=== PATIENT | male | born 1940 | race Caucasian/White ===

== ENCOUNTER 2024-11-26 11:49 | Inpatient (IN) | payer OTHER, SELFPAY ==
[2024-11-26] VITALS (10 sets, daily range): BP systolic 87–125; BP diastolic 50–93; BMI 20.7; BMI 20.1
[2024-11-26 07:50] LABS: % Basophils 0.3 % (0-2); % Eosinophils 0.5 % (0-6); % Immature Granulocytes 0.4 % (0-0.5); % Lymphocytes 16.7 % (20.5-51.1); % Neutrophils 77.1 % (42.2-75.2); Absolute Lymphocytes 1.3 10^3/uL (1.2-3.4); Absolute Monocytes 0.4 10^3/uL (0.1-0.6); Absolute Neutrophils 5.9 10^3/uL (1.4-6.5); Hematocrit 34.6 % (39.0-52.0); Hemoglobin 12.4 g/dL (13.0-18.0); Mean Corp Hgb Conc. 35.8 g/dL (33.0-37.0); Mean Corpuscular Hgb 32.4 pg (27.0-31.0); Mean Corpuscular Volume 90.3 fL (80.0-94.0); Mean Platelet Volume 8.7 fL (7.4-10.4); Nucleated Red Blood Cells % 0 % (-); Platelet Count 177 10^3/uL (130-400); Red Blood Cell Count 3.83 10^6/uL (4.70-6.10); White Blood Cell Count 7.6 10^3/uL (4.8-10.8)
[2024-11-26 08:03] LABS: ALT (SGPT) 18 U/L (0-50); AST (SGOT) 26 U/L (17-59); Albumin 3.9 g/dl (3.5-5.0); Alkaline Phosphatase 54 U/L (38-126); Blood Urea Nitrogen 21 mg/dl (9-20); Calcium 8.5 mg/dl (8.4-10.2); Carbon Dioxide 22 mmol/L (22-30); Chloride 96 mmol/L (98-107); Estimated Creatinine Clearance 55 ml/min; Glucose 128 mg/dl (70-99); Potassium 3.8 mmol/L (3.5-5.1); Sodium 130 mmol/L (135-145); Total Protein 6.3 g/dl (6.3-8.2); eGFR > 60.00
[2024-11-26 08:07] LABS: COVID-19 Antigen Negative (Negative)
--- NOTE | 2024-11-26 08:26 | ED.GENMED ---
History of Present Illness
General
Chief Complaint: Weakness
Source: patient
Exam Limitations: none
Time Seen by Provider: 11/26/24 07:09
Nursing documentation reviewed up to this point in time: agreed with
History of Present Illness
History of Present Illness:
84-year-old male with past medical history of previous stroke, hypertension presenting to the emergency department today with concerns of 4 days of upper respiratory symptoms generalized weakness fatigue and cough. Denies any specific chest pain
specific shortness of breath during my assessment at rest he claims that he does not have significant symptoms other than intermittent cough and some throat pain.
Past History
Past History
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
ED Past Surgical History: Other (Cataracts)
Social History
Tobacco: Non-smoker
Alcohol: None
Drug: None
Personal:
Living: with family
Review of Systems
Review of Systems
Allergies reviewed?: Yes
All Other Systems: ROS reviewed and negative except as documented in HPI and ROS
Phy Exam
Physical Exam
Physical Exam:
GENERAL: Alert , in no apparent distress
EYE: pupils equal and reactive
NECK: Supple, no significant adenopathy.
ENT: Postnasal drip o/p clr, mmm.
CARDIAC: Regular rate and rhythm .
LUNGS: Clear breath sounds bilaterally, no acute respiratory distress, no wheezes/rales/rhonchi
ABDOMEN: Soft, without focal tenderness, no r/g, no cvat
NEUROLOGICAL: Alert and oriented, no focal neuro deficits
SKIN: Warm and dry, skin intact.
MUSCULOSKELETAL: No edema, well perfused.
PSYCH: Normal and appropriate interaction.
Sepsis
Sepsis Screening
Sepsis Assessment: Sepsis Ruled Out
Sepsis Screen
Sepsis Screen: Sepsis Ruled Out
Date: 11/26/24
Time: 10:29
Course
Orders/Labs/Results
Orders:
Orders
11/26/24 07:29
Urinalysis Reflex To Culture Urgent
CR Chest - 2 Views Urgent
Comment:
Reason For Exam: sob cough
11/26/24 07:30
Electrocardiogram (*1) Stat
Reason for Study: Other
Other Reason for Exam: pneumonia
EKG- Treatment ONCE
11/26/24 07:36
COVID-19 Antigen Urgent
Source: Nasal Swab
Complete Blood Count/With Diff Urgent
Comprehensive Metabolic Panel Urgent
Influenza A+B Rapid Molecular Urgent
EMETERIO Source: Nasal Swab
Specimen Description:
11/26/24 08:26
Acetaminophen [Tylenol] 1,000 mg PO NOW STA
11/26/24 08:28
0.9% Sodium Chloride 500 ml [Nss] 500 ml IV BOLUS
11/26/24 10:08
Azithromycin 500 mg/250 ml [Zithromax Infusion] 500 mg in 250 ml IV NOW
CefTRIAXone [Rocephin] 1,000 mg IV NOW STA
Abnormal Lab Results
11/26/24
07:36
RBC 3.83 L 10^6/uL
(4.70-6.10)
Hgb 12.4 L g/dL
(13.0-18.0)
Hct 34.6 L %
(39.0-52.0)
MCH 32.4 H pg
(27.0-31.0)
Neutrophils % 77.1 H %
(42.2-75.2)
Lymphocytes % 16.7 L %
(20.5-51.1)
Sodium 130 L mmol/L
(135-145)
Chloride 96 L mmol/L
(98-107)
BUN 21 H mg/dl
(9-20)
Glucose 128 H mg/dl
(70-99)
11/26/24 07:36
11/26/24 07:36
Vital Signs
Initial and Last Documented VS:
Initial Vital Signs
Temp Pulse Resp BP Pulse Ox
100.7 F H 90 20 118/58 90
11/26/24 06:46 11/26/24 06:46 11/26/24 06:46 11/26/24 06:46 11/26/24 06:46
Last Documented Vital Signs
Temp Pulse Resp BP Pulse Ox
100.7 F H 79 21 125/93 92
11/26/24 06:46 11/26/24 09:00 11/26/24 09:00 11/26/24 09:00 11/26/24 09:00
MDM/Problems Addressed
MDM/Problems Addressed:
84-year-old male presenting to the emergency department today with concerns of generalized weakness fatigue cough upper respiratory symptoms over the past 4 days. Low-grade temperature on arrival otherwise vital signs are normal. Patient claims
his symptoms are very while he sitting in the examination room. Labs were obtained showing slightly low sodium level as well as elevated BUN to creatinine ratio. Patient was given fluids did have some improvement in symptoms here. He was taken
off the oxygen typically is not on oxygen at home. Was using 2 L nasal cannula due to dropping pulse ox while here. After being taken off of the oxygen his pulse ox dropped to 87%. He was then placed back on the oxygen. After reviewing the chest
x-ray there appears to be a potential early pneumonia that seen on lateral view. Concerning this she was darted on antibiotics and will otherwise be admitted for further monitoring and treatment.
*Critical Care Note
Total Time (30-74mins, 75-104mins- exclusive of procedures): Not Applicable
ED Attending Note
-
Portions of this chart may have been created with voice recognition software.� Occasional wrong word or��sound alike� substitutions may have occurred due to the inherent limitations of voice recognition software.
Discharge Plan
Departure
Patient Disposition: Admit
Date of Disposition: 11/26/24
Time of Disposition: 10:29
Admit to: Med/Surg
Admit to doctor: Cornelio
Presentation/result/management discussed w/ accepting MD/DO: Hospitalist
Patient with high blood pressure during this ER visit?: No
Condition: Good
Covid-19: Not Applicable
Discharge Problem:
Pneumonia, Hypoxia
Prescriptions:
No Action
levothyroxine 100 mcg tablet
100 mcg PO MOTUWETHFRSA@0800
clopidogrel 75 mg tablet
75 mg PO DAILY Qty: 90 0RF
Rx Instructions:
both aspirin and plavix untill 02/09/23 then stop aspirin and continue plavix indefinitely.
prednisone 5 mg Tablet
5 mg PO DAILY Qty: 90 0RF
cabergoline 0.5 mg Tablet
0.25 mg PO MOFR Qty: 30 0RF
Referrals:
Akash Dinero MD [Family Provider] -
Interventions
Interventions:
*Risk Screen - Suicide Last Done: 11/26/24 06:46
*General Assessment Last Done: 11/26/24 07:26
*Neglect/Abuse Screening Last Done: 11/26/24 06:46
*ED- Fall Risk Assessment Last Done: 11/26/24 06:46
*ED COVID-19 Vaccine History Last Done: 11/26/24 06:46
ED- Cardiac Assessment Last Done: 11/26/24 07:47
ED- Neurological Assessment Last Done: 11/26/24 07:47
ED- Pulmonary Assessment Last Done: 11/26/24 07:47
Discharge Date and Time
Print Language: PALESTINIAN
[2024-11-26] MEDS: TYLENOL 1000 MG PO (08:50)
[2024-11-26] MEDS: NSS 500 IV ×2 (08:51→12:06)
[2024-11-26] MEDS: ROCEPHIN 1000 MG IV (10:25)
[2024-11-26] MEDS: ZITHROMAX INFUSION 250 IV (10:25)
--- NOTE | 2024-11-26 11:47 | HPS.HSE ---
Family Physician
-
Family Physician: Akash Dinero
Chief Complaint
-
Cough and weakness
History of Present Illness
Patient presents with 4 days of cough which she says mostly is dry. He also has been feeling weak and fatigued.
He denies any associated shortness of breath. Does not recollect any fevers or chills at home.
No nausea vomiting.
Discovered to have fever and here and left lower lobe pneumonia on the chest x-ray.
He was also noted to be hypoxic needing oxygen.
Denies any primary lung issues of emphysema or COPD. Non-smoker. Denies any history of heart failure.
Denies any chest pain.
Nobody sick at home. No recent travel.
Medical History
Past Medical History
Past Medical History: Reports Other
Additional Past Medical History:
hypothyroidism
htn
SIADH
Past Surgical History: Reports None
Social History
Tobacco: Non-smoker
Alcohol: None
Drug: None
Personal:
Living: With Family
Employment: Retired
Family History
Family History: Not pertinent
Allergies / Home Medications
Allergies reflects when Allergies were last updated in [facility].
Home Medications with original date entered in [facility]
Allergy/Medication List:
Allergies
Allergy/AdvReac Type Severity Reaction Status Date / Time
shellfish derived Allergy Anaphylaxis Verified 01/12/23 12:31
Home Medications
midodrine 2.5 mg tablet 2.5 mg PO DAILY 03/11/14
prednisone 5 mg tablets in a dose pack 5 mg PO DAILY ##14 03/30/19
Rhodiola 500 mg PO HS PRN leg cramps 01/12/23
cabergoline 0.5 mg tablet 0.25 mg PO .2X WEEKLY 01/12/23
donepezil 10 mg tablet 10 mg PO DAILY 01/12/23
levothyroxine 100 mcg tablet 100 mcg PO .6X WEEKLY 01/12/23
multivit,Ca,min-iron 8 mg-folic acid 200 mcg-lycopene 600 mcg tablet (Centrum Men) 1 tab PO DAILY 01/12/23
sodium chloride-potassium chloride 287 mg-180 mg-15 mg tablet (Thermotabs) 1 tab PO DAILY 01/12/23
Review of Systems
-
A 12 point ROS was completed and negative except as noted: Yes
Physical Exam
Vital Signs
Vital Signs
Temp Pulse Resp BP Pulse Ox
100.7 F H 65 17 107/55 95
11/26/24 06:46 11/26/24 11:00 11/26/24 11:00 11/26/24 10:00 11/26/24 11:00
Physical Exam
General: Comfortable
HEENT: Moist mucous membranes
Respiratory: Crackles (Left base) and Non Labored Respirations; No Accessory Resp Muscle Use
Cardiac: S1/S2 and Regular Rhythm; No Tachycardia or JVD
GI: Soft, Non Tender, Non Distended and Normal Bowel Sounds
Musculoskeletal: No Edema
Neuro: AO x 3
Psych: Calm
Laboratory Results
-
11/26/24 07:36
11/26/24 07:36
Laboratory Results
Total Bilirubin 1.0 mg/dl (0.2-1.3) 11/26/24 07:36
AST 26 U/L (17-59) 11/26/24 07:36
ALT 18 U/L (0-50) 11/26/24 07:36
Alkaline Phosphatase 54 U/L (38-126) 11/26/24 07:36
Data Reviewed
-
Diagnostic Radiology: Report Reviewed by me (Chest x-ray)
Lab Data: Labs Reviewed by me
Impression/Plan
-
Left lower lobe qqngzrlqq-abgcbnnqa-ixdzefft-patient presents with cough and weakness. Noted to have fever with x-ray evidence of left lower lobe pneumonia. Treat as community-acquired pneumonia. COVID and flu negative. Check blood cultures.
Start on ceftriaxone and doxycycline antibiotic regimen and follow response.
Acute hypoxic respiratory insufficiency-start on oxygen and wean as able. No active reactive airway disease. Not known to have underlying lung chronic issues.
Hypertension-noted drop in blood pressure after admission. Will give a fluid bolus and follow-up. If persistent hypotension check a lactic acid.
Hyponatremia-clinically euvolemic. Unclear oral intake. No active GI symptoms. No extrarenal losses. Check urine osmolality and sodium.
Chronic steroid use-patient does not know the indication. In view of soft blood pressure will start on stress dose steroids.
History of CVA-continue Plavix
Hypothyroidism-continue Synthroid
Full code
Left msg to
--- NOTE | 2024-11-26 13:39 | CM ---
Patient seen at bedside with patient . Patient states that patient lives with her on the first floor of a home that her daughter and son in law live on the second floor. Patient daughter is primary caregiver during the week. Patient has had
admission to [facility] and home care in the past. Patient PCP is Dr. Avalos and they use the [facility] on [address] Patient states that he has a walker, rollator and a wheelchair but they do not use the wheelchair currently. Patient has no home O2 and
has not had any admissions since his discharge from [facility] approx 2 years ago. Patient plan is for him to return home with VN if needed. CM will continue to follow for discharge planning needs.
Plan; home with VN vs SNF
[2024-11-26] MEDS: SOLU-CORTEF 50 MG IV ×2 (15:52→23:52)
[2024-11-26] MEDS: PLAVIX 75 MG PO (15:52)
[2024-11-26 16:57] LABS: Osmolality Urine 542 mOsm/kg (300-900); Urine Albumin 1+ (Neg - Trace); Urine Bilirubin Negative (Negative); Urine Character Clear (Clear); Urine Color Yellow; Urine Glucose Negative (Negative); Urine Ketone Negative (Negative); Urine Leukocyte Negative (Negative); Urine Nitrite Negative (Negative); Urine Occult Blood Negative (Negative); Urine Urobilinogen Negative (Neg - 1+); Urine pH 6.5 (5.0-9.0)
[2024-11-26 17:08] LABS: Urine Bacteria Few (Negative); Urine Red Blood Cell 0-2 /HPF (0-2); Urine Squamous Cell 0-2 /LPF (Few); Urine White Cell 0-2 /HPF (0-5)
[2024-11-26] MEDS: LOVENOX 40 MG SC (17:11)
[2024-11-26 17:12] LABS: Urine Sodium 107 mmol/L (30-90)
[2024-11-26] MEDS: VIBRAMYCIN 100 MG PO (21:14)
[2024-11-27] MEDS: SYNTHROID 100 MCG PO (05:52)
[2024-11-27 07:20] VITALS: BP 146/65
[2024-11-27] MEDS: PLAVIX 75 MG PO (07:38)
[2024-11-27] MEDS: SOLU-CORTEF 50 MG IV ×2 (07:38→19:35)
[2024-11-27] MEDS: VIBRAMYCIN 100 MG PO ×2 (07:38→19:34)
[2024-11-27] MEDS: NON-FORMULARY ITEM 0.25 MG PO (07:52)
[2024-11-27 09:05] LABS: Hematocrit 37.4 % (39.0-52.0); Hemoglobin 13.2 g/dL (13.0-18.0); Mean Corp Hgb Conc. 35.3 g/dL (33.0-37.0); Mean Corpuscular Hgb 32.1 pg (27.0-31.0); Mean Platelet Volume 8.8 fL (7.4-10.4); Platelet Count 209 10^3/uL (130-400); Red Blood Cell Count 4.11 10^6/uL (4.70-6.10); Red Cell Dist. Width 12.8 % (11.5-14.5); White Blood Cell Count 9.8 10^3/uL (4.8-10.8)
[2024-11-27 09:37] LABS: Blood Urea Nitrogen 19 mg/dl (9-20); Calcium 9.4 mg/dl (8.4-10.2); Carbon Dioxide 22 mmol/L (22-30); Chloride 97 mmol/L (98-107); Estimated Creatinine Clearance 60 ml/min; Glucose 150 mg/dl (70-99); Potassium 3.9 mmol/L (3.5-5.1); Sodium 133 mmol/L (135-145); eGFR > 60.00
--- NOTE | 2024-11-27 09:56 | W.PN.HOSP.TC ---
Today's Communication/Plan
-
CW ABX
Wean steroids
DC planning
Assessment / Plan
Assessment / Plan
Left lower lobe saygvyiso-tvmkbytkj-dckyzgrz-patient presents with cough and weakness. Noted to have fever with x-ray evidence of left lower lobe pneumonia. cw tx as community-acquired pneumonia. COVID and flu negative. blood cultures pending.
CW ceftriaxone and doxycycline antibiotic regimen and follow response.
Acute hypoxic respiratory insufficiency-Resolved. No active reactive airway disease. Not known to have underlying lung chronic issues.
Hypotension-noted drop in blood pressure after admission. Will give a fluid bolus and follow-up. resolved.
Hyponatremia-clinically euvolemic. Unclear oral intake. No active GI symptoms. No extrarenal losses. Urine osmolality and sodium indicates excess ADH. On FR. improving
Chronic steroid use-patient does not know the indication. In view of soft blood pressure started on stress dose steroids. wean today as BP has improved.
History of CVA-continue Plavix
Hypothyroidism-continue Synthroid. Await TSH.
Full code
Left msg to yesterday
Anticipated Discharge: Within 24 hours
Subjective/Interval History
-
Date of Service: November 27, 2024
Feeling better today. Apart from runny nose voices no specific complaints. Cough is mostly dry. Denies shortness of breath. Not on oxygen this morning. Denies any chest pain.
No nausea vomiting.
Still cannot remember the indication for prednisone.
Objective Data
-
Labs:
Laboratory Results
11/27/24
08:40
WBC 9.8
Hgb 13.2
Hct 37.4 L
Plt Count 209
Sodium 133 L
Potassium 3.9
Chloride 97 L
Carbon Dioxide 22
BUN 19
Creatinine 0.8
Glucose 150 H
Calcium 9.4
Vital Signs:
Vital Signs
Temp Pulse Resp BP Pulse Ox
97.3 F 58 18 146/65 94
11/27/24 07:20 11/27/24 07:20 11/27/24 07:20 11/27/24 07:20 11/27/24 09:01
I&O
11/26/24 11/27/24 11/28/24
06:59 06:59 06:59
Intake Total 480 / 480
Output Total 350 / 350
Balance 130 / 130
Review of Systems
-
Constitutional: Denies Fever or Chills
Neuro: Denies Dizzy
Physical Exam
-
General: No Apparent Distress
HEENT: Moist Mucous Membranes
Respiratory: Crackles (left base) and Non Labored Respirations; Negative Wheezes or Accessory Resp Muscle Use
Cardiac: Regular Rhythm and S1/S2
GI: Soft
Neuro: AO x 3
Data Reviewed
-
Labs: Labs Reviewed by me
[2024-11-27 10:08] LABS: TSH < 0.02 uIU/ml (0.47-4.68)
[2024-11-27] MEDS: ROCEPHIN 1000 MG IV (10:38)
[2024-11-27] MEDS: STERILE WATER FOR INJECTION 10 ML IV (10:38)
[2024-11-27 15:31] VITALS: BP 143/69
--- NOTE | 2024-11-27 15:55 | CM ---
Chart reviewed, patient would benefit from PT/OT evaluations.
Plan; To follow and after patient seen by PT OT assist with discharge planning.
[2024-11-27] MEDS: LOVENOX 40 MG SC (17:07)
[2024-11-27 23:00] VITALS: BP 124/55
[2024-11-28] MEDS: SYNTHROID 100 MCG PO (04:34)
[2024-11-28 06:24] LABS: Blood Urea Nitrogen 24 mg/dl (9-20); Calcium 9.1 mg/dl (8.4-10.2); Carbon Dioxide 23 mmol/L (22-30); Chloride 100 mmol/L (98-107); Estimated Creatinine Clearance 53 ml/min; Glucose 128 mg/dl (70-99); Potassium 3.8 mmol/L (3.5-5.1); Sodium 134 mmol/L (135-145); eGFR > 60.00
[2024-11-28] MEDS: PLAVIX 75 MG PO (07:39)
[2024-11-28] MEDS: VIBRAMYCIN 100 MG PO (07:39)
[2024-11-28] MEDS: SOLU-CORTEF 50 MG IV (07:40)
[2024-11-28 07:56] VITALS: BP 109/6
[2024-11-28] MEDS: STERILE WATER FOR INJECTION 10 ML IV (09:41)
[2024-11-28] MEDS: ROCEPHIN 1000 MG IV (09:41)
--- NOTE | 2024-11-28 12:20 | W.PN.HOSP.TC ---
Today's Communication/Plan
-
DC
Assessment / Plan
Assessment / Plan
Left lower lobe fvjcottce-yzxcmipfm-broitqlb-patient presents with cough and weakness. Noted to have fever with x-ray evidence of left lower lobe pneumonia. cw tx as community-acquired pneumonia. COVID and flu negative. blood cultures neg.
clinically improved. Resolved hypoxia. Switch to oral cefdinir and doxycycline and complete 7 and 5 days of antibiotics respectively. Advised to follow-up chest x-ray in 3 to 4 weeks time..
Acute hypoxic respiratory insufficiency-Resolved. No active reactive airway disease. Not known to have underlying lung chronic issues.
Hypotension-noted drop in blood pressure after admission. Will give a fluid bolus and follow-up. resolved.
Hyponatremia-clinically euvolemic. Unclear oral intake. No active GI symptoms. No extrarenal losses. Urine osmolality and sodium indicates excess ADH. On FR. 134 today. Suspect secondary to pneumonia. Liberalize fluids. Advised to avoid excess
fluids.
Chronic steroid use-DC back to oral home dose of prednisone 5 mg daily.
History of CVA-continue Plavix
Hypothyroidism- TSH low - advised to decrease synthroid to 75 mcg and check TSH in 4weeks
Full code
DW regarding pneumonia follow-up and regarding TSH follow-up.
Total discharge 32 minutes
Anticipated Discharge: Today
Subjective/Interval History
-
Date of Service: November 28, 2024
Resolved shortness of breath and hypoxia. Feels better. Keen to go home.
Denies much of cough. No chest pain. No nausea vomiting. No fever chills.
Tolerating diet.
Denies any dizziness. States he is independent walking to the bathroom.
Objective Data
-
Labs:
Laboratory Results
11/28/24
04:52
Sodium 134 L
Potassium 3.8
Chloride 100
Carbon Dioxide 23
BUN 24 H
Creatinine 0.9
Glucose 128 H
Calcium 9.1
Vital Signs:
Vital Signs
Temp Pulse Resp BP Pulse Ox
97.8 F 57 18 109/6 91
11/28/24 07:56 11/28/24 07:56 11/28/24 07:56 11/28/24 07:56 11/28/24 07:56
I&O
11/27/24 11/28/24 11/29/24
06:59 06:59 06:59
Intake Total 480 / 480 720 / 720
Output Total 350 / 350
Balance 130 / 130 720 / 720
Physical Exam
-
General: Comfortable
Respiratory: Crackles (Left basilar area) and Non Labored Respirations; Negative Wheezes or Accessory Resp Muscle Use
Cardiac: Regular Rhythm and S1/S2; Negative Tachycardic
Neuro: AO x 3
Data Reviewed
-
Labs: Labs Reviewed by me
--- NOTE | 2024-11-28 12:34 | W.DCSUMMARY ---
Discharge Summary
Discharge Data
Date of Admission: 11/26/24
Date of Discharge: 11/28/24
-
Pending Results: No
Hospital Course
Primary diagnosis:
Community-acquired pneumonia with left lower lobe opacity
Acute hypoxic respiratory insufficiency which resolved
Euvolemic hyponatremia
Secondary diagnosis:
Hypothyroidism
Chronic steroid use
History of CVA
Hospital course:
Patient presented with cough and weakness and discovered to have a left lower lobe opacity and clinically concerning for pneumonia. Immuno competent patient with the criteria for community-acquired pneumonia. COVID and flu are negative. Blood
cultures are negative. He was initiated on ceftriaxone and doxycycline which was switched to cefdinir and doxycycline on discharge once stable. He had transient hypoxic respiratory insufficiency which resolved. Patient advised to get a follow-up
chest x-ray in 3 to 4 weeks time.
He also had hyponatremia with sodium of 130 in the urine lites suggesting excessive ADH probably in the setting of pneumonia. With fluid restriction sodium almost normalized to 134.
A TSH was checked on admission which showed it was less than 0.02. His dose of Synthroid was down titrated to 75 mcg from 100mcg and he takes it on Saturday to Saturday daily. He was supposed to see front office director but he was hospitalized so he is
going to reschedule an appointment.
Discharge Plan
-
Patient Disposition: Home (Routine Discharge)
Discharge Diagnosis/Procedures: Left lung pneumonia
Diet: Regular
Activity: As tolerated
Driving Restrictions: As prior to admission
Bathing Restrictions: None
Others Tests: Chest xray 2 view in 3-4 weeks
Referrals:
Akash Dinero MD [Family Provider] - in less than 1 week
Prescriptions:
New
dextromethorphan-guaifenesin 10-100 mg/5 mL Syrup
10 ml PO Q4HPRN PRN (Reason: cough) Qty: 237 0RF
cefdinir 300 mg capsule
300 mg PO BID Qty: 10 0RF
doxycycline hyclate 100 mg Capsule
100 mg PO BID Qty: 6 0RF
levothyroxine 75 mcg capsule
75 mcg PO MOTUWETHFRSA Qty: 30 0RF
Rx Instructions:
Dose decreased on this admission
Continued
clopidogrel 75 mg tablet
75 mg PO DAILY Qty: 90 0RF
Rx Instructions:
both aspirin and plavix untill 02/09/23 then stop aspirin and continue plavix indefinitely.
prednisone 5 mg Tablet
5 mg PO DAILY Qty: 90 0RF
cabergoline 0.5 mg Tablet
0.25 mg PO MOFR Qty: 30 0RF
Discontinued
levothyroxine 100 mcg tablet
100 mcg PO MOTUWETHFRSA@0800
Discharge Orders:
Discharge Patient (As Directed); Ordered 11/28/24
Ordered By: Zhen Grimes
Discharge Date and Time
Print Language: ARABIC
[2024-11-28 12:51] VITALS: BP 160/68
--- NOTE | 2024-11-28 12:55 | CM ---
Patient discharged to home; no services; spouse provided transport
Left before CM was able to meet with patient
== END 2024-11-28 13:09 | disposition home or self-care (01) | DRG 194 ==
LOC: 4 WEST ACU 11:49
PROVIDERS: Physician Assistant; ADMITTING PHYSICIAN Internal Medicine; EMERGENCY PHYSICIAN Emergency Medicine; FAMILY PHYSICIAN Family Medicine
DX: J18.9 Pneumonia, unspecified organism (principal); E22.2 Syndrome of inappropriate secretion of antidiuretic hormone; E03.9 Hypothyroidism, unspecified; I10 Essential (primary) hypertension; R09.02 Hypoxemia; R06.89 Other abnormalities of breathing; I95.9 Hypotension, unspecified; Z11.52 Encounter for screening for COVID-19; Z79.890 Hormone replacement therapy; Z79.52 Long term (current) use of systemic steroids; Z86.73 Personal history of transient ischemic attack (TIA), and cerebral infarction without residual deficits; Z79.02 Long term (current) use of antithrombotics/antiplatelets
CPT/HCPCS: 71046; 80048; 80053; 81003; 81015; 83935; 84300; 84443; 85025; 85027; 87040; 87502; 87811; 93005; 96361; 96365; 96375; 99285

== ENCOUNTER 2025-07-04 11:26 | Inpatient (IN) | payer OTHER, SELFPAY ==
[2025-07-04] VITALS (13 sets, daily range): BP systolic 99–160; BP diastolic 44–70; BMI 19.4
[2025-07-04 07:14] LABS: Hematocrit 35.0 % (39.0-52.0); Hemoglobin 12.3 g/dL (13.0-18.0); Mean Corp Hgb Conc. 35.1 g/dL (33.0-37.0); Mean Corpuscular Volume 90.7 fL (80.0-94.0); Nucleated Red Blood Cells % 0 % (-); Platelet Count 173 10^3/uL (130-400); Red Cell Dist. Width 12.7 % (11.5-14.5)
[2025-07-04 07:18] LABS: ALT (SGPT) 19 U/L (0-50); AST (SGOT) 27 U/L (17-59); Albumin 3.9 g/dl (3.5-5.0); Alkaline Phosphatase 63 U/L (38-126); Blood Urea Nitrogen 20 mg/dl (9-20); Calcium 8.8 mg/dl (8.4-10.2); Carbon Dioxide 25 mmol/L (22-30); Chloride 99 mmol/L (98-107); Glucose 115 mg/dl (70-99); Potassium 3.9 mmol/L (3.5-5.1); Sodium 129 mmol/L (135-145); Total Protein 6.7 g/dl (6.3-8.2); eGFR > 60.00
[2025-07-04 07:26] LABS: Troponin I 0.180 ng/ml
[2025-07-04] MEDS: NSS 1000 IV (08:46)
--- NOTE | 2025-07-04 08:48 | ED.GENMED ---
History of Present Illness
General
Chief Complaint: Fainting/Passed Out
Source: patient
Exam Limitations: none
Time Seen by Provider: 07/04/25 08:33
Nursing documentation reviewed up to this point in time: agreed with
History of Present Illness
History of Present Illness:
Note:
CHIEF COMPLAINT(S)
Syncope and increased sleepiness.
HISTORY OF PRESENT ILLNESS
The patient is an 85-year-old male who presented following an episode of syncope that occurred last night. For the past three days, he has experienced excessive sleepiness, sleeping almost non-stop. This is not the first time such episodes have
occurred; however, they usually resolve within a day or two. Last night, the patient went to the bathroom and lost consciousness while standing to urinate. His spouse was able to catch him before he could fall. The patient reports no preceding
symptoms and denies any chest pain or difficulty breathing. He consistently reports feeling fine, aside from a general weakness in his legs.
The patient has a known history of hyponatremia with previous sodium levels around 129 mEq/L. Initial evaluations in the emergency department revealed an EKG that appeared normal but a slightly elevated troponin level, indicating potential heart
stress. The patient does not recall the syncope episode.
ADDITIONAL HISTORY OBTAINED FROM SOURCES OTHER THAN THE PATIENT
Per the patients spouse, the patient experienced excessive sleepiness and the syncopal episode last night while standing to urinate. She had concerns due to his previous sodium issues and the duration of the current sleepiness episode. She routinely
helps him with mobility due to his weak legs.
CHRONIC MEDICAL CONDITIONS SIGNIFICANTLY AFFECTING CARE
- Hyponatremia
- Possible pituitary adenoma (managed with prednisone)
MEDICATIONS
- Cabergoline
- Prednisone (for pituitary adenoma)
- Levothyroxine
REVIEW OF SYSTEMS
- General: Increased sleepiness for the last three days
- Neurological: Syncope episode last night, weakness in legs
- Respiratory: No difficulty in breathing reported
- Cardiovascular: No chest pain reported
- Musculoskeletal: Generalized leg weakness reported
PHYSICAL EXAM
General: Alert, no acute distress.
Skin: Warm, dry.
Head: Normocephalic, atraumatic.
Neck: Supple, trachea midline.
Eye, Ears, Nose, Mouth and Throat: Oral mucosa moist.
Cardiovascular: Normal peripheral perfusion, No edema.
Respiratory: Respirations are non-labored.
Gastrointestinal: Abdomen nondistended
Back: Normal range of motion, Normal alignment.
Musculoskeletal: Normal range of motion, normal strength.
Neurological: Alert and oriented to person, place, time, and situation, No focal neurological deficit observed.
Psychiatric: Cooperative, appropriate mood & affect.
PLAN
- Admit the patient for overnight observation to monitor cardiac rhythm and further evaluate the slightly elevated troponin level.
- Administer intravenous fluids to address possible dehydration and low sodium levels.
- Order a computed tomography scan of the brain to assess for causes of syncope.
- Continue current medications, and follow up with endocrine evaluation scheduled for Saturday.
DIFFERENTIAL DIAGNOSIS
The Differential Diagnosis includes, in no particular order and is not limited to:
- Syncope due to orthostasis
- Cardiac arrhythmia
- Hyponatremia leading to altered consciousness
- Primary neurological event (e.g., transient ischemic attack)
- Medication effect (e.g., excessive effect from antihypertensive)
- Pituitary insufficiency or adrenal insufficiency
- Dehydration
- Vasovagal syncope
- Electrolyte imbalance (other than hyponatremia)
- Sleep apnea or other sleep disorders affecting consciousness
EKG
My independent EKG interpretation is:
- Rhythm: Not specified
- Heart Rate: Not specified
- ID Interval: Normal
- QRS Duration: Not specified
- QT Interval: Normal
- [place]: Not specified
- Abnormalities: Chronic right bundle branch block
- ST Segment: No signs of ischemia
- T Waves: Not specified
Disposition:
SUMMARY OF ENCOUNTER
The patient, an 85-year-old male, was seen in the emergency department following an episode of syncope that occurred last night while standing to urinate. He reported excessive sleepiness over the past three days and chronic leg weakness. Initial
evaluations showed normal EKG results but with slightly elevated troponin levels, suggesting potential heart stress. A history of hyponatremia and a possible pituitary adenoma managed with prednisone are notable. The patient was managed with the
decision to admit for continuous monitoring due to his syncope and elevated troponin levels.
DISPOSITION
Admit
ASSESSMENT
The syncopal episode without preceding symptoms combined with elevated troponin levels raises concerns about potential cardiac involvement, orthostatic syncope from hyponatremia, or another underlying issue. The patient will require further
inpatient evaluation to determine the cause and manage his symptoms effectively.
PLAN
Admit for overnight observation to monitor cardiac rhythm and follow up on elevated troponin levels. Administer intravenous fluids for possible dehydration and low sodium levels. Conduct a CT scan of the brain to investigate syncope causes. Continue
with current medications and plan for an endocrine evaluation.
INDEPENDENT REVIEW OF LABS AND INTERPRETATION OF TESTS
My independent review of the EKG indicates a chronic right bundle branch block without signs of ischemia. My independent review of the slightly elevated troponin levels indicates potential heart stress and necessitates further monitoring and
evaluation.
MEDICAL DECISION MAKING
1. Number and Complexity of Problems Addressed: Chronic conditions affecting care include hyponatremia, possible pituitary adenoma, and syncopal episodes. Differential diagnoses involve cardiac arrhythmia, hyponatremia leading to altered
consciousness, possible neurological events, dehydration, electrolyte imbalance, vasovagal syncope, and medication effects.
2. Data:
Category 1: Independent interpretation of the EKG indicating a chronic right bundle branch block. Reviewed slight elevation in troponin, necessitating admission for monitoring.
Category 2: Clinical information obtained from the patients spouse, confirming episodes of excessive sleepiness and providing historical context for the syncopal events.
3. Risk: Admission for monitoring due to elevated troponin levels indicates moderate risk for cardiac-related complications. Prescription medication continuation was discussed, with plans for monitoring requirements.
DIAGNOSIS
- Syncope (R55)
- Hyponatremia (E87.1)
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
- Weakness (Generalized) (R53.1)
Past History
Past History
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
ED Past Surgical History: Other (Cataracts)
Social History
Tobacco: Non-smoker
Alcohol: None
Drug: None
Personal:
Living: with family
Phy Exam
Physical Exam
Physical Exam:
.
Course
Orders/Labs/Results
Orders:
Orders
07/04/25 Breakfast
Regular
At Your Request: Full Participation
Does patient need a safe tray?: No
Reason for opting out of Binding Stitcher order writing: Provider Decision
07/04/25 06:35
Electrocardiogram (*1) Urgent
Reason for Study: Syncope
EKG- Treatment ONCE
07/04/25 06:50
Complete Blood Count/With Diff Urgent
Comprehensive Metabolic Panel Urgent
Troponin I Urgent
07/04/25 08:46
CT Head W/o Iv Contrast Urgent
Comment:
Reason For Exam: syncope
0.9% Sodium Chloride 1000 ml [Nss] 1,000 ml IV BOLUS
07/04/25 08:50
0.9% Sodium Chloride 1000 ml [Nss] 1,000 ml IV BOLUS
07/04/25 10:39
EKG with chest pain [ECG as needed] As Directed
ECG as needed for:: Chest Pain
Rhythm Change
Other reason
Other reason for ECG as needed:: trop elevation
07/04/25 10:40
CARDIOLOGY CONSULT Routine
Consulting Provider: Esteban Reyes
Was physician already notified: Yes
07/04/25 10:41
Echo 2D MMode Color/Doppler Routine
Reason for Study: trop elevation and syncope
07/04/25 10:55
Admit/Transfer Patient As Directed
Co-Sign Provider:
Level of Care: Inpatient admission
Assign to:: IVU
Physician / Group: caitie ramirez
Diagnosis: syncope
Reason for Hospitalization: syncope elevated trop
Expected length of stay greater than two midnights?: Yes
ELOS- Estimated Length of Stay in days: 2
I certify the patient meets the requirements for IP care: Yes
PRN Pain Medication Management As Directed
May give lesser potent ordered pain med per pt: Yes
preference::
Protocol:: Medication orders for pain may be administered in a
manner that supports deferring to patient preference
when the pt is:
- Requesting an ordered lesser potent pain medication.
Least to most potent pain medications are defined
as: acetaminophen < NSAID < tramadol < opioids
(morphine, oxycodone, hydromorphone).
- Requesting a lesser dose of the same medication IF
ORDERED.
- Requesting a less intrusive route of administration
if both routes are prescribed by the provider (PO <
IV).
07/04/25 10:56
Code Status As Directed
Resuscitation Status: Do not resuscitate
Reached after discussion with pt or family/Healthcare POA: Yes
07/04/25 10:57
DNR Bracelet Application ONCE
07/04/25 10:58
Activity As Directed
Activity Level: As Tolerated
Precautions As Directed
Type of Precautions: Aspiration
Other
Comment: fall
Vital Signs As Directed
Frequency: Per unit guidelines
07/04/25 11:12
Orthostatic Vital Signs As Directed
Orthostatic VS Frequency: BID
07/04/25 11:25
Basic Metabolic Panel Routine
Complete Blood Count/No Diff Routine
D-Dimer Stat
Troponin I Q6H
07/04/25 12:00
0.9% Sodium Chloride 500 ml [Nss] 500 ml IV 50 mls/hr
07/04/25 14:30
Bisacodyl [Dulcolax] 10 mg RECTAL [id number] PRN
Docusate W/Senna [Senokot-S] 1 tablet PO BIDPRN PRN
Polyethylene Glycol Powder [Miralax] 17 grams PO DAILYPRN PRN
07/04/25 14:30
DX Deep Vein Thrombosis Video Routine
07/04/25 16:45
Troponin I Q6H
07/04/25 18:00
Enoxaparin Sodium [Lovenox] 30 mg SC QPM
07/04/25 22:45
Troponin I Q6H
07/05/25 04:45
Troponin I Q6H
07/05/25 06:00
Magnesium IN AM
TSH IN AM
07/05/25 08:00
Clopidogrel Bisulfate [Plavix] 75 mg PO DAILY
Prednisone [Deltasone] 5 mg PO DAILY
07/05/25 10:55
cabergoline 0.25 mg PO MOFR
levothyroxine 75 mcg PO MOTUWETHFRSA
Abnormal Lab Results
07/04/25 07/04/25
06:50 11:25
WBC 4.7 L 10^3/uL 4.1 L 10^3/uL
(4.8-10.8) (4.8-10.8)
RBC 3.86 L 10^6/uL 3.52 L 10^6/uL
(4.70-6.10) (4.70-6.10)
Hgb 12.3 L g/dL 11.3 L g/dL
(13.0-18.0) (13.0-18.0)
Hct 35.0 L % 33.0 L %
(39.0-52.0) (39.0-52.0)
MCH 31.9 H pg 32.1 H pg
(27.0-31.0) (27.0-31.0)
Absolute Lymphs (auto) 1.0 L 10^3/uL
(1.2-3.4)
Monocytes % 11.3 H %
(1.7-9.3)
D-Dimer 0.63 H ug/mlFEU
(0.00-0.50)
Sodium 129 L mmol/L 132 L mmol/L
(135-145) (135-145)
Glucose 115 H mg/dl 105 H mg/dl
(70-99) (70-99)
Calcium 8.2 L mg/dl
(8.4-10.2)
Troponin I 0.180 H* ng/ml 0.375 H* D ng/ml
07/04/25 11:25
07/04/25 11:25
Vital Signs
Initial and Last Documented VS:
Initial Vital Signs
Temp Pulse Resp BP Pulse Ox
99 F 83 18 99/50 96
07/04/25 06:31 07/04/25 06:31 07/04/25 06:31 07/04/25 06:31 07/04/25 06:31
Last Documented Vital Signs
Temp Pulse Resp BP Pulse Ox
98.9 F 66 18 106/60 91
07/04/25 14:46 07/04/25 13:30 07/04/25 14:46 07/04/25 13:24 07/04/25 14:46
*Pulse Oximetry
SaO2: 94
Oxygen Mode of Delivery: Room air
Patient hypoxic: no
*Critical Care Note
Total Time (30-74mins, 75-104mins- exclusive of procedures): Not Applicable
ED Attending Note
-
Portions of this chart may have been created with voice recognition software.� Occasional wrong word or��sound alike� substitutions may have occurred due to the inherent limitations of voice recognition software.
Discharge Plan
Departure
Patient Disposition: Admit
Date of Disposition: 07/04/25
Time of Disposition: 10:22
Admit to: Telemetry
Presentation/result/management discussed w/ accepting MD/DO: Hospitalist
Patient with high blood pressure during this ER visit?: Yes
Condition: Good
Discharge Problem:
Syncope
Interventions
Interventions:
*Risk Screen - Suicide Last Done: 07/04/25 06:31
*General Assessment Last Done: 07/04/25 06:31
*Neglect/Abuse Screening Last Done: 07/04/25 08:38
*ED- Fall Risk Assessment Last Done: 07/04/25 06:31
*ED COVID-19 Vaccine History Last Done: 07/04/25 06:31
*ED Influenza Vaccine History Last Done: 07/04/25 06:34
*Nursing Disposition Last Done: 07/04/25 13:43
ED- Cardiac Assessment Last Done: 07/04/25 08:38
ED- Neurological Assessment Last Done: 07/04/25 08:38
Discharge Date and Time
Discharge Date/Time: 07/04/25 14:04
--- NOTE | 2025-07-04 11:09 | HPS.HSE ---
Addendum entered and electronically signed by Сергей Conway MD 07/04/25 13:55:
0.67 D-Dimer age adjusted - VTE unlikley
Addendum entered and electronically signed by Сергей Conway MD 07/04/25 11:32:
Elevated troponin, NSTEMI
Trend troponins x 3 every 6 hours
Telemetry
2D echo
If continue increasing will go ahead and initiate heparin drip
Cardiology consulted
Original Note:
Family Physician
-
Family Physician: Akash Dinero
Chief Complaint
-
syncope
History of Present Illness
85 male history of CVA, pituitary mass, hypothyroidism, hyponatremia/SIADH who is presenting with a witnessed syncopal episode. was helping him to the bathroom with assistance of his walker. Before even able to use the toilet/sit down on the
toilet his legs gave out and his arm/left arm went flaccid his face glazed over. She was able to turn him around and his walker and set him on the toilet. She believes it was for a minute or so and he was not confused but he did urinate himself.
But does state if felt like it was 10 minutes. Did not have any complaints of shortness of breath chest pain palpitations. She does admit that he was sleeping in bed for 3 days and would only wake up to eat food and take his medications and use
the bathroom otherwise he was tired. On morning which was the start of the 3-days in bed he had thrown up his breakfast and all of his pills.
She tells me that he has been compliant with prednisone 5 mg p.o. daily and has been taking all of his other medications and has not missed a dose.
In the ED EKG was completed that showed sinus rhythm with a right bundle branch block similar to previous. Elevated troponin of 0.18. Hematin hemodynamically stable.
Medical History
Past Medical History
Past Medical History: Reports Cancer and CVA
Past Surgical History: Reports Other
Social History
Alcohol: None
Family History
Family History: Not pertinent
Allergies / Home Medications
Allergies reflects when Allergies were last updated in [facility].
Home Medications with original date entered in [facility]
Allergy/Medication List:
Allergies
Allergy/AdvReac Type Severity Reaction Status Date / Time
shellfish derived Allergy Anaphylaxis Verified 07/04/25 06:30
Home Medications
cabergoline 0.5 mg tablet 0.25 mg (1/2 x 0.5 mg) PO MOFR Neurological Condition #30 tabs 02/06/23
clopidogrel 75 mg tablet 75 mg PO DAILY Blood Clot Prevention/Tx #90 tabs 02/06/23
prednisone 5 mg tablet 5 mg PO DAILY Neurological Condition #90 tabs 02/06/23
levothyroxine 75 mcg capsule 75 mcg PO MOTUWETHFRSA #30 caps 11/28/24
Review of Systems
-
A 12 point ROS was completed and negative except as noted: Yes
Physical Exam
Vital Signs
Vital Signs
Temp Pulse Resp BP Pulse Ox
97.9 F 70 15 121/58 94
07/04/25 08:38 07/04/25 08:38 07/04/25 08:38 07/04/25 08:38 07/04/25 08:50
Physical Exam
General: No Apparent Distress, Comfortable and Conversant
HEENT: NormoCephalic and Anicteric
Respiratory: Clear; No Wheezes, Rales or Rhonchi
Cardiac: S1/S2, Regular Rhythm and Murmur (CHECO at RUSB (New)); No Peripheral Edema or Calf Tenderness
Breast: Deferred by me
GI: Soft, Non Tender, Non Distended and Normal Bowel Sounds
Skin: Warm and Dry
Laboratory Results
-
Laboratory Results
Total Bilirubin 1.0 mg/dl (0.2-1.3) 07/04/25 06:50
AST 27 U/L (17-59) 07/04/25 06:50
ALT 19 U/L (0-50) 07/04/25 06:50
Alkaline Phosphatase 63 U/L (38-126) 07/04/25 06:50
Troponin I 0.180 ng/ml H* 07/04/25 06:50
Impression/Plan
-
Syncope, witnessed
DDx: Arrhythmia/cardiac induced vs orthostatic. Less likely neuro/vasovagal
Monitor on telemetry
Troponin trend
EKG
DDimer, if high check CTPE
2D echocardiogram
Orthostatics
TSH
Consult cardiology
Pituatiry cancer
On chronic prednisone and cabergoline
Hyponatremia, likely multifactorial, on the tubing drier side though
500cc over the next 10 hours.
Repeat bmp in the AM
If going the opposite way may need urine studies
Hypothyroidism
Conitnue levothyroxine
DVT ppx
Lovenox
DNR
[2025-07-04] MEDS: NSS 500 IV ×2 (11:29→22:55)
[2025-07-04 11:41] LABS: Hematocrit 33.0 % (39.0-52.0); Hemoglobin 11.3 g/dL (13.0-18.0); Mean Corp Hgb Conc. 34.2 g/dL (33.0-37.0); Mean Corpuscular Volume 93.8 fL (80.0-94.0); Platelet Count 150 10^3/uL (130-400); Red Cell Dist. Width 12.8 % (11.5-14.5)
[2025-07-04 11:53] LABS: Blood Urea Nitrogen 19 mg/dl (9-20); Calcium 8.2 mg/dl (8.4-10.2); Carbon Dioxide 25 mmol/L (22-30); Chloride 102 mmol/L (98-107); Estimated Creatinine Clearance 50 ml/min; Glucose 105 mg/dl (70-99); HDL Cholesterol 31 mg/dl; LDL Cholesterol, Calculated 104 mg/dl; Potassium 3.9 mmol/L (3.5-5.1); Sodium 132 mmol/L (135-145); Very Low Density Lipoprotein 21 mg/dl (0-30); eGFR > 60.00
[2025-07-04 11:57] LABS: D-Dimer 0.63 ug/mlFEU (0.00-0.50)
--- NOTE | 2025-07-04 11:58 | CM ---
water resources project manager reviewed patient's chart and met with patient and patient states he lives on the 1st floor with his spouse of a 2 story home, patient's daughter and son in law live on the 2nd floor, patient is independent with adl's and uses a walker
with ambulation, patient has a w/c in home.
PCP: Dr. Akash Dinero
Pharmacy: [facility] in [facility].
--- NOTE | 2025-07-04 12:01 | CON.CAR ---
Consultation
Consultation Request
Date/Time Consultation Requested: 07/04/2025 11: 00
Date/Time Consultation Performed: 07/04/2025 11: 30
Requesting Provider: Man
Performing Provider: Amy
Reason for Consultation: Syncope, elevated troponin
Medical History
-
Chief Complaint: Passed out
History of Present Illness:
Hung has a history of CVA, hypertension, hypothyroidism. He presents after a syncopal episode. His baseline state is he is very inactive and sedentary. He has been sleeping in a chair for the past couple of days. His got him up to go to
the bathroom. He was standing and noted to get pale and passed out for about 10 to 20 seconds. She noted his eyes glazed over. He denied any chest pain short breath or palpitations at the time but is a poor historian. Cardiology is consulted for
minimally elevated troponin.
Past Medical History
Past Medical History: Other (See HPI)
Past Surgical History: Other (Cataracts)
Social History
Tobacco: Non-Smoker
Alcohol: None
Drug: None
Personal:
Living: With Family
Employment: Retired
Family History
Family History: Other (Father of an GA at 53 and mother at 80)
Allergies / Home Medications
Allergy/AdvReac Type Severity Reaction Status Date / Time
shellfish derived Allergy Anaphylaxis Verified 07/04/25 06:30
�Medication �Instructions �Recorded �Confirmed �Type
cabergoline 0.5 mg tablet 0.25 mg (1/2 x 0.5 mg) PO MOFR 02/06/23 07/04/25 Rx
Neurological Condition #30 tabs
clopidogrel 75 mg tablet 75 mg PO DAILY Blood Clot 02/06/23 07/04/25 Rx
Prevention/Tx #90 tabs
prednisone 5 mg tablet 5 mg PO DAILY Neurological 02/06/23 07/04/25 Rx
Condition #90 tabs
levothyroxine 75 mcg capsule 75 mcg PO MOTUWETHFRSA #30 caps 11/28/24 07/04/25 Rx
Review of Systems
-
History Source: Patient
All other systems: Negative unless noted
Constitutional: No Symptoms
EENT: No Symptoms
Respiratory: No Symptoms
Cardiac: No Symptoms and Syncope
Abdomen/GI: No Symptoms
: No Symptoms
Musculoskeletal: No Symptoms
Skin: No Symptoms
Neurological: No Symptoms
Endocrine: No Symptoms
Hematologic/Lymphatic: No Symptoms
Physical Exam
Vital Signs
Temp Pulse Resp BP Pulse Ox
97.9 F 70 15 121/58 94
07/04/25 08:38 07/04/25 08:38 07/04/25 08:38 07/04/25 08:38 07/04/25 08:50
General: Well developed, well nourished in NAD.
Neck: Supple, no JVD, HJR, carotids +2 B/L, no bruits bilaterally.
Heart: Non displaced PMI, RRR, 2/6 basal systolic murmur, No S3, S4, no rubs.
Lungs: Clear to auscultation bilaterally, no wheeze, rhonchi, rubs bilaterally,
normal expiratory phase.
Abdomen: Normal bowel sounds, soft, non-tender, non-distended.
Extremities: No clubbing, cyanosis or edema bilaterally.
Neuro: Grossly nonfocal, awake, alert and oriented x3.
Lab Results
07/04/25 11:25
07/04/25 11:25
Troponin I 0.180 ng/ml H* 07/04/25 06:50
Impression / Plan
-
Impression:
Syncope likely vasovagal in the setting of urinating with poor p.o. intake for the past several days
Elevated troponin, likely nonmyocardial ischemic injury
Mild aortic stenosis echocardiogram January 2023
History of CVA
Hypertension
Hypothyroidism
History of SIADH/pituitary mass
Echocardiogram 01/14/2023: Ejection fraction 60%, mild concentric LVH, mild aortic stenosis but mean pressure gradient of 6 mmHg aortic valve area 1.8 cm�
Plan:
He presents with syncopal episode which is likely vasovagal in the setting of poor p.o. intake for 2 days and standing to urinate
Troponin is elevated likely due to known myocardial ischemic injury
Will continue to track troponins
Check echocardiogram
Check orthostatics
Data Reviewed
-
EKG: Tracing Personally Visualized and interpreted
Radiology: Report Reviewed by me
CT Scan: Report Reviewed by me
Medical Tests (Nuc Med, Echo etc): Report Reviewed by me
Labs: Labs Reviewed by me
Old Records: Reviewed
[2025-07-04 12:05] LABS: Troponin I 0.375 ng/ml
--- NOTE | 2025-07-04 12:08 | EDRN ---
trop trending up, provider notified
[2025-07-04] MEDS: HEPARIN 3700 UNITS IV (12:48)
[2025-07-04] MEDS: HEPARIN 25000 UNITS/250 ML IV (12:51)
--- NOTE | 2025-07-04 12:57 | EDRN ---
Trop trending up, second EKG performed, PTT drawn and sent, Heparin gtt hung at 750units/hour, next ptt at 1900, awaiting for IVU bed
[2025-07-04 13:02] LABS: Hematocrit 30.7 % (39.0-52.0); Hemoglobin 10.2 g/dL (13.0-18.0); Mean Corp Hgb Conc. 33.2 g/dL (33.0-37.0); Mean Corpuscular Volume 93.9 fL (80.0-94.0); Platelet Count 133 10^3/uL (130-400); Red Cell Dist. Width 12.7 % (11.5-14.5)
[2025-07-04 13:08] LABS: APTT 36.5 Sec (23.4-35.0)
--- NOTE | 2025-07-04 13:43 | EDRN ---
this RN called verbal report to the receiving IVU nurse Iveth GLASS, paper report was also tubed up
--- NOTE | 2025-07-04 15:17 | PTCARENOTE ---
assumed care of pt. pt is sr on the monitor, hr in the 70s, vss. pt offers no complaints at this time. pt denies cp/sob. pt oriented to room at bedside visiting. notified rn of pt being 'forgetful at times.' bed alarm applied for safety.
pt resting comfortably in bed. pt ambulated from stretcher to room, very unsteady on feet.
[2025-07-04 18:06] LABS: APTT 96.7 Sec (23.4-35.0)
[2025-07-04 18:29] LABS: Troponin I 0.298 ng/ml
--- NOTE | 2025-07-04 23:52 | PTCARENOTE ---
assumed care of patient at the change of shift. oriented x3, confused at times. forgetful. bed alarm for safety. SR with a BBB on tele- 70s-80s. bp stable. denies any cp/sob. heparin gtt infusing per protocol. IV site patent. new? Right elbow skin
tear- cleansed and foam pad applied. patient urinating blue/green urine in the urinal- baseline per patients . comfort measures provided. call kennedy within reach.
[2025-07-05] VITALS (13 sets, daily range): BP systolic 91–147; BP diastolic 57–98; PULSE 73–81; O2SAT 95
[2025-07-05 03:10] LABS: APTT 58.1 Sec (23.4-35.0)
[2025-07-05 03:25] LABS: Magnesium 1.6 mg/dl (1.6-2.3)
[2025-07-05 03:33] LABS: Troponin I 0.220 ng/ml
[2025-07-05 04:12] LABS: TSH < 0.02 uIU/ml (0.47-4.68)
[2025-07-05 05:11] LABS: Blood Urea Nitrogen 14 mg/dl (9-20); Calcium 8.6 mg/dl (8.4-10.2); Carbon Dioxide 23 mmol/L (22-30); Chloride 101 mmol/L (98-107); Estimated Creatinine Clearance 56 ml/min; Glucose 114 mg/dl (70-99); Potassium 3.7 mmol/L (3.5-5.1); Sodium 128 mmol/L (135-145); eGFR > 60.00
[2025-07-05] MEDS: SYNTHROID 75 MCG PO (06:05)
--- NOTE | 2025-07-05 06:21 | W.PN.UPDATE ---
Update Note
Progress Note Update
06:15 am Patient is hypoxic with spo2 88%, was placed on 2L of O2 and SPo2 up to 93%. Temp 99.1, bp 112/70, hr 77.
-Diminished lung sound on exam. Denies SOB or chest pain.
-Chest x-ray, pro BNP, covid and flu ordered.
--- NOTE | 2025-07-05 06:30 | PTCARENOTE ---
new oxygen requirement this morning. 88% on RA. placed patient on 2L NC- 93-94%. updated Patricia merchant ALTERATIONS EXPERT. at the bedside. chest xray ordered. labs ordered.
[2025-07-05 07:57] LABS: COVID-19 Antigen Negative (Negative)
[2025-07-05 08:57] LABS: Glycohemoglobin (HgbA1c) 5.6 % (4.0-5.9)
[2025-07-05] MEDS: DELTASONE 5 MG PO (08:58)
[2025-07-05] MEDS: PLAVIX 75 MG PO (08:58)
[2025-07-05] MEDS: NSS IV (09:33)
[2025-07-05 10:11] LABS: APTT 90.8 Sec (23.4-35.0)
--- NOTE | 2025-07-05 10:43 | CM ---
Addendum entered by Brenna Villegas RN 07/05/25 16:42:
PT evaluation recommending VN. I spoke with the patient's and she is agreeable. Referral sent to [facility]. Plan is for the patient to [facility]. CM to follow
Original Note:
Chart reviewed. Patient is independent of ADLS, lives with his , daughter and KRISTA in a 2 STH, patient and his on 1st floor, 5-6 LENY, patient uses a RW and also has a wheelchair in the home. PT to evaluate patient. Plan is for the
patient to return home pending functional assessment. CM to follow
--- NOTE | 2025-07-05 12:05 | W.PN.CARDCBS ---
Addendum entered and electronically signed by Zahira Castillo DO 07/05/25 22:53:
I saw and examined the patient.
The Tire Curer's note was reviewed and I agree with the note.
Comment: Patient was seen and examined with his and granddaughter at bedside. Chart/telemetry and vitals reviewed. Patient is overall poor historian and offers no specific complaints.
GEN: Frail 85-year-old gentleman. Awake and alert but sleepy
HEENT: Mucous membranes mildly dry
LUNGS:Bronchovesicular breath sounds, decreased bilaterally but no wheezes rhonchi's or rales
CV: Reg, S1/S2, 2/6 syst LSB murmur
ABD: soft, BS+, NT/ND
EXT: No edema
Plan:
85-year-old gentleman with history of remote stroke and residual right-sided hemiparesis/gait dysfunction, aortic stenosis, hypertension, hypothyroidism, and pituitary mass with SIADH who presents with syncopal episode at home. Patient's
states that for several days he has been very sleepy without specific complaints. She believes he has been dehydrated as he will only eat and drink when prompted. Patient does have a history of urinary hesitancy although they deny urologic
evaluation of his prostate. While standing to use the bathroom with assistance his legs gave way and she was able to lower him to the toilet where she witnessed LOC. Fortunately no reported injury.
-Micturition syncope is likely vasovagal with orthostatic hypotension in the setting of poor oral intake/dehydration
-He has a history of orthostatic hypotension previously on midodrine which was discontinued in 2022
-Status post IV fluids which were discontinued this morning when patient became slightly hypoxic with suspected iatrogenic volume overload and proBNP 0. Pulse ox has improved so we will hold off on IV diuresis for now and monitor closely.
-2D echocardiogram stable since 2022 with normal LV size and systolic function, EF 65 to 70% and mild LVH. Mild aortic stenosis with peak/mean gradients 18/10 mmHg and trace AI. Trace mitral and tricuspid regurgitation. No pericardial effusion.
-CT of the head without acute intracranial abnormality with extensive white matter hypodensities, sequelae of severe chronic small vessel ischemic disease.
- COVID negative; flu negative. Doubt infectious etiology
- Telemetry so far sinus rhythm without tacky or bradycardia arrhythmia.
-Encourage oral intake
- If remains orthostatic could consider low-dose midodrine
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
- No history of atrial fibrillation
- Has been maintained on Plavix
- Does not routinely follow with a neurologist
-continue Plavix
- unclear why he is not on statin therapy. LDL 104. Start [id number] daily, if no contraindications
Reported history of urinary hesitancy�consider evaluation for BPH. Defer to primary service
Abnormal cardiac troponin. Patient reported chest tightness approximately 1 week ago however has had no further chest tightness
-Troponin elevated, peak at 0.375 and now downtrending
-Given comorbidities will hold off ischemic evaluation And opt for medical therapy- Family is in agreement
Hypothyroidism
-TSH less than 0.012 but free T4 is normal.
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
He also has a history of Alzheimer's type dementia previously on Aricept
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
DNI
Original Note:
Today's Communication / Plan
-
BPs orthostatic
await echo
Impression / Plan
-
Impression:
Syncope likely vasovagal in the setting of urinating with poor p.o. intake for the past several days
orthostatic blood pressures
Elevated troponin, likely nonmyocardial ischemic injury
Mild aortic stenosis echocardiogram January 2023
History of CVA
Hypertension
Hypothyroidism
History of SIADH/pituitary mass
Echocardiogram 01/14/2023: Ejection fraction 60%, mild concentric LVH, mild aortic stenosis but mean pressure gradient of 6 mmHg aortic valve area 1.8 cm�
Echo 07/05/2025 pending:
Plan:
-He presents with syncopal episode, thought to be vasovagal in the setting of poor p.o. intake for 2 days and standing to urinate
-Head CT without acute intracranial abnormality, extensive white matter hypodensities similar to prior study, may be sequelae of severe chronic small vessel ischemic disease
-Blood pressure orthostatic today supine 132/63, sitting 107/66, standing 91/64
-had been on IV fluids but stopped this a.m. when patient noted to be hypoxic with SpO2 88% with decreased breath sounds on exam
- Subsequent chest x-ray w/ small left basilar opacity, likely scarring, calcified lymph nodes suggestive of prior granulomatous disease
- proBNP 1820
-COVID-negative, flu negative
-Telemetry personally reviewed: Normal sinus rhythm 70 to 93 bpm
-Consider outpatient ekg monitor
- Continue to monitor orthostatic BPs
- Echo pending
Troponin elevated, peak at 0.375 and now downtrending, likely due to known myocardial ischemic injury
Patient denies chest pain
Check echocardiogram today
murmur on exam
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
Subjective
Date of Service: July 05, 2025
denies dizziness, SOB, CP
Objective
Labs:
07/04/25 12:45
07/05/25 02:46
Labs
Hgb 10.2 g/dL (13.0-18.0) L 07/04/25 12:45
Hct 30.7 % (39.0-52.0) L 07/04/25 12:45
Plt Count 133 10^3/uL (130-400) 07/04/25 12:45
APTT 90.8 Sec (23.4-35.0) H 07/05/25 09:44
Sodium 128 mmol/L (135-145) L 07/05/25 02:46
Potassium 3.7 mmol/L (3.5-5.1) 07/05/25 02:46
BUN 14 mg/dl (9-20) 07/05/25 02:46
Creatinine 0.8 mg/dL (0.7-1.3) 07/05/25 02:46
Glucose 114 mg/dl (70-99) H 07/05/25 02:46
Troponins
07/04/25 07/04/25 07/04/25
06:50 11: 17:38
Troponin I 0.180 H* 0.375 H* D 0.298 H*
07/05/25 07/05/25
02:46 04:45
Troponin I 0.220 H* Cancelled
Vital Signs and I&O:
Vital Signs
Temp Pulse Resp BP Pulse Ox
98.9 F 74 18 117/65 94
07/05/25 07:06 07/05/25 11:43 07/05/25 11:43 07/05/25 07:06 07/05/25 08:00
Vital Signs
Temp Pulse Resp BP Pulse Ox
98.9 F 74 18 117/65 94
07/05/25 07:06 07/05/25 11:43 07/05/25 11:43 07/05/25 07:06 07/05/25 08:00
Intake & Output
07/03/25 07/04/25 07/05/25 07/06/25
06:59 06:59 06:59 06:59
Intake Total 740 / 740
Output Total 900 / 900 200 / 200
Balance -160 / -160 -200 / -200
Physical Exam
Physical Exam
GEN: No distress, awake, Ox3
HEENT: supple, anicteric, mmm
LUNGS:decreased at bases ? faint rales
CV: Reg, S1/S2, 2/6 syst LSB murmur
ABD: soft, BS+, NT/ND
EXT: No edema
NEURO: Gross non-focal
SKIN: No rash, warm dry
--- NOTE | 2025-07-05 12:05 | W.PN.HOSP.TC ---
Today's Communication/Plan
-
PT OT
Check free T4
Echo
Orthostatics
Assessment / Plan
Assessment / Plan
85 male history of CVA, pituitary mass, hypothyroidism, hyponatremia/SIADH who is presented after a witnessed syncopal episode.
#Syncope, witnessed
# Elevated troponin
DDx: Arrhythmia/cardiac induced vs orthostatic vs vasovagal
-Monitor on telemetry
-Troponin peaked at 0.298
-On heparin drip
-echocardiogram pending
-Check orthostatics
-TSH <0.02 ; will check the free T4 before considering decreasing the levo dose
-Cardiology following
-PT/OT
#hypoxia
- COVID and flu negative
- on 2L supp o2 NC
- Chest x-ray with no acute pulmonary disease
#Pituatiry mass/cancer
- chronic prednisone and cabergoline
#Hyponatremia, likely multifactorial, on the bone drier side though
SIADH
-Fluid restriction in diet
-Repeat bmp in the AM
#Hypothyroidism
-Conitnue levothyroxine-check free T4
#History of CVA
-continue Plavix
DVT ppx: Lovenox
DNR
Anticipated Discharge: 24 - 48 hours
Subjective/Interval History
-
Date of Service: July 05, 2025
AFVSS. Offers no new complaints. Not oriented to place
Objective Data
-
Labs:
Laboratory Results
07/05/25 07/05/25 07/05/25
02:46 09:44 16:00
APTT 58.1 H 90.8 H Pending
Sodium 128 L
Potassium 3.7
Chloride 101
Carbon Dioxide 23
BUN 14
Creatinine 0.8
Glucose 114 H
Calcium 8.6
Vital Signs:
Vital Signs
Temp Pulse Resp BP Pulse Ox
98.9 F 74 18 117/65 94
07/05/25 07:06 07/05/25 11:43 07/05/25 11:43 07/05/25 07:06 07/05/25 08:00
I&O
07/04/25 07/05/25 07/06/25
06:59 06:59 06:59
Intake Total 740 / 740
Output Total 900 / 900 200 / 200
Balance -160 / -160 -200 / -200
Review of Systems
-
Unable to obtain full review of systems at this time due to: Other (Ongoing symptoms.)
History Source: Patient
Physical Exam
-
General: Well Developed, No Apparent Distress, Comfortable and Conversant
HEENT: Moist Mucous Membranes
Respiratory: Decreased Breath Sounds
Cardiac: Regular Rhythm, S1/S2 and Murmur; Negative JVD
GI: Soft and Nontender
Skin: Warm
Neuro: Awake and Alert
Psych: Calm
Data Reviewed
-
Labs: Labs Reviewed by me, Discussed with Physician and Discussed with Patient
[2025-07-05] MEDS: NON-FORMULARY ITEM 0.5 MG PO (12:23)
--- NOTE | 2025-07-05 12:59 | PTCARENOTE ---
Patient comfortable at rest. Denies chest pain. Oxygen removed POX 93% on room air, fine crackles left base. He is AO x3, confused to situation, forgetful. Right foot drop old CVA, wears a brace normally. NSR on telemetry, ortho vitals obtained
(132/63 lying, 107/68 sitting, standing 91/62). IVF resumed at 60cc/hr. OOB in chair several times today, times 1 with rolling walker, voiding green color urine in the bathroom (medication he takes orally changes the color of his urine). Bed and
chair alarms audible
[2025-07-05] MEDS: NSS 500 IV ×2 (14:54→23:17)
--- NOTE | 2025-07-05 15:42 | PTOTSP ---
Speech Therapy Evaluation:
Pt with chronic risk factors of dysphagia including hx of CVA with 4 subsequent VSEs in 2022, however pt/family reported no swallowing difficulty since most recent VSE in 04/2023 with findings of minimal/mild oropharyngeal dysphagia. At bedside, pt
with grossly functional oral phase. No overt s/sx of aspiration across trials. CXR completed today without evidence of PNA and pt on room air.
Recommend:
1. Continue regular solids and thin liquids
2. Medications as tolerated
3. General aspiration precautions
4. SUPERVISOR [employer] GRADING to follow to monitor tolerance of diet and determine if pt would benefit from instrumental assessment
[2025-07-05 17:07] LABS: APTT 118.9 Sec (23.4-35.0)
[2025-07-05] MEDS: HEPARIN 25000 UNITS/250 ML IV (17:27)
--- NOTE | 2025-07-05 19:35 | PTCARENOTE ---
Patient in bed eating. Vomited right after eating into basin. Denies nausea. Care provided. Will continue to monitor
[2025-07-05 23:55] LABS: APTT 111.8 Sec (23.4-35.0)
[2025-07-06] VITALS (17 sets, daily range): BP systolic 74–158; BP diastolic 39–94; PULSE 82–91; O2SAT 90
--- NOTE | 2025-07-06 01:57 | PTCARENOTE ---
Received pt @ change of shift. AAO x3, VSS-- NSR w/ BBB on monitor. Heparin gtt running @ 850 units/hr and NSS gtt running @ 60 mls/hr through right AC. Bed alarm on for pt safety. Discussed plan of care. Pt verbalizes understanding. Call kennedy
within reach.
[2025-07-06] MEDS: SYNTHROID 75 MCG PO (06:26)
[2025-07-06 08:21] LABS: Hematocrit 31.5 % (39.0-52.0); Hemoglobin 11.5 g/dL (13.0-18.0); Mean Corp Hgb Conc. 36.5 g/dL (33.0-37.0); Mean Corpuscular Volume 88.2 fL (80.0-94.0); Platelet Count 174 10^3/uL (130-400); Red Cell Dist. Width 12.5 % (11.5-14.5)
[2025-07-06 08:30] LABS: APTT 53.0 Sec (23.4-35.0)
[2025-07-06 08:54] LABS: Blood Urea Nitrogen 11 mg/dl (9-20); Calcium 8.6 mg/dl (8.4-10.2); Carbon Dioxide 24 mmol/L (22-30); Chloride 100 mmol/L (98-107); Estimated Creatinine Clearance 56 ml/min; Glucose 108 mg/dl (70-99); Potassium 3.9 mmol/L (3.5-5.1); Sodium 131 mmol/L (135-145); eGFR > 60.00
--- NOTE | 2025-07-06 09:02 | PN.CDI ---
CDI
- -
CDI:
Physician Documentation Request
Admit Date: 07/04/25 11:26
Dear Doctor,
Patient admitted with syncope.
Please review the following and provide your response in the progress notes.
Clinical Indicators:
Height: 5' 10'
Weight: 135 lbs
BMI: 19.4
07/05 Hospitalist PN: 'AO x 3 to 4, NAD, frail-appearing'
If possible, please provide an associated diagnosis related to the abnormal BMI, such as:
Cachectic
Underweight
BMI is not significant
Other
BMI < or = to 19.9
Underweight
Weight Loss
Cachectic
Anorexia
Use of terms such as suspected, likely, concern for, or probable (associated with a specific diagnosis that is being evaluated, monitored, or treated as if it exists) are acceptable and can be coded in the inpatient setting, when documented at the
time of discharge.
Thank you,
Hannah Soni RN, BSN
CDI Specialist
Available via [place] text
Please use your independent medical judgment in providing your response.
[2025-07-06] MEDS: PLAVIX 75 MG PO (09:34)
[2025-07-06] MEDS: DELTASONE 5 MG PO (09:34)
[2025-07-06 09:55] LABS: Urine Character Slightly Cloudy (Clear)
--- NOTE | 2025-07-06 10:06 | W.PN.HOSP.TC ---
Addendum entered and electronically signed by Esteban Cervantes DO 07/07/25 11:02:
CDI: Underweight
Original Note:
Today's Communication/Plan
-
Discontinue heparin drip
Trend orthostatic vitals
Monitor telemetry
OOB as tolerated
Assessment / Plan
Assessment / Plan
#Witnessed syncopal event
#History of orthostasis
-DDx: Vasovagal/orthostatic >> arrhythmic/cardiac
-Orthostatic vital signs yesterday negative though only supine and sitting
-Echocardiogram unchanged, preserved EF, normal valvular function
-Event occurred during micturition which likely correlates to vasovagal
-Continue to monitor orthostatic vital signs daily, consider midodrine
-Continue to monitor on telemetry
#Elevated troponin
-Suspected nonischemic myocardial injury associated with syncopal episode
-No known history of obstructive CAD though does have risks with male gender and age
-Home regimen included Plavix for history of CVA, started on statin here with LDL 104
-Received heparin drip in the hospital, discontinued morning of 07/06, troponin downtrend
-Continue to monitor
#Nausea
-Developed an episode of nausea without vomiting following breakfast this morning
-Zofran as needed
#Pituatiry mass
#SIADH
-Current regimen include chronic prednisone and cabergoline for pituitary mass
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
-Serum sodium currently near 131 on fluid restricted diet
-Continue home regimen and fluid restricted diet, trend BMP
#Hypothyroidism
-Possibly central etiology with known pituitary mass
-Home regimen includes levothyroxine 100 mcg Saturday through Saturday
-TSH was low on arrival though free T4 WNL
-Will need close OP follow-up with his frame catcher
#History of CVA
-Home regimen included Plavix, started on statin here
-No obvious residual deficits noted
Diet: Regular, 48 oz FR
DVT ppx: Lovenox
CODE STATUS: DNR
Disposition: Home care when medically stable
Discussed with cardiology
Anticipated Discharge: 24 - 48 hours
Subjective/Interval History
-
Date of Service: July 06, 2025
Seen and examined at the bedside. No acute events reported overnight. AFVSS on room air.
Patient states he feels fine at time of my assessment and denies any complaints. Had some nausea after breakfast
Hemoglobin and renal function stable. Sodium up to 131
Objective Data
-
Labs:
Laboratory Results
07/05/25 07/06/25 07/06/25
23:31 08:08 08:09
WBC 5.8
Hgb 11.5 L
Hct 31.5 L
Plt Count 174 D
APTT 111.8 H 53.0 H
Sodium 131 L
Potassium 3.9
Chloride 100
Carbon Dioxide 24
BUN 11
Creatinine 0.8
Glucose 108 H
Calcium 8.6
Vital Signs:
Vital Signs
Temp Pulse Resp BP Pulse Ox
98.0 F 86 15 158/72 95
07/06/25 03:44 07/06/25 07:37 07/06/25 07:37 07/06/25 07:37 07/06/25 03:44
I&O
07/05/25 07/06/25 07/07/25
06:59 06:59 06:59
Intake Total 740 / 740
Output Total 900 / 900 1615 / 1615
Balance -160 / -160 -1615 / -1615
Review of Systems
-
History Source: Patient
All other systems: Reviewed and negative
Physical Exam
-
General: Well Developed, No Apparent Distress and Other (Thin and frail)
HEENT: Normocephalic, Atraumatic, Moist Mucous Membranes and Anicteric
Respiratory: Clear to Auscultation and Non Labored Respirations; Negative Accessory Resp Muscle Use
Cardiac: Regular Rhythm and S1/S2; Negative Murmur, Rub or Gallop
GI: Soft, Nontender, Nondistended and Normal Bowel Sounds
Musculoskeletal: No Clubbing, No Cyanosis and No Edema
Skin: Warm and Dry; Negative Rash
Neuro: AO x 3, Nonfocal/Grossly Intact and Central Nerve's Intact; Negative Tremors
Psych: Calm
Data Reviewed
-
Labs: Labs Reviewed by me, Discussed with Nurse and Discussed with Patient
[2025-07-06 10:27] LABS: Urine White Cell 26-30 /HPF (0-5)
--- NOTE | 2025-07-06 10:29 | CM ---
Reviewed chart. Met with and Mrs. Kirkpatrick to review discharge plans. He states he is felling better. He states prior to to admission he resides with spouse, daughter and son-in law in a two story home with a ramp to enter. He states he has
a first floor set-up. He states his daughter and son-in-law reside on the second floor. He states prior to admission he ambulates with a rolling walker in the home and uses a rollator in the community. He states he has a rolling walker, rollator
and wheelchair at home. He states prior to admission he was independent with adls. 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 Currently she is away but coming home later today. He states he has prescription plan. We
reviewed [facility] with [facility] for RN and P.T. He is agreeable to [facility]. Medical work-up in progress. The discharge plan is to return home with his spouse, daughter and son-l=in-law with [facility] when medically
stable.
[2025-07-06] MEDS: NSS IV ×2 (10:32→19:21)
--- NOTE | 2025-07-06 11:31 | W.PN.CARDCBS ---
Addendum entered and electronically signed by Ángel Shaw DO 07/06/25 12:45:
I saw and examined the patient.
The Infrastructure Security Architect's note was reviewed and I agree with the note.
Comment:
Plan:
Bp stable
Cont med tx of nonMI troponin
Echo stable with normal EF and mild which would not contribute to syncope.
PT/OT
Repeat orthostatic vitals and if stable will arrange outpt cardiac followup
please recall if needed
Original Note:
Today's Communication / Plan
-
IV heparin stopped. follow urine, epistaxis
compression stockings
PT/OT
repeat ortho VS
will arrange OP cardiac follow up
Impression / Plan
-
Impression:
Syncope likely vasovagal in the setting of urinating with poor p.o. intake for the past several days
Orthostasis
Elevated troponin, likely nonmyocardial ischemic injury
Mild aortic stenosis echocardiogram January 2023
History of CVA
Hypertension
Hypothyroidism
History of SIADH/pituitary mass
Echocardiogram 01/14/2023: Ejection fraction 60%, mild concentric LVH, mild aortic stenosis but mean pressure gradient of 6 mmHg aortic valve area 1.8 cm�
Echo 07/05/2025 pending: EF 65-70%, mild with peak/mean gradients 18/10 mmHg, NATHAN 1.9 cm�, mild concentric LVH
Plan:
-He presents with syncopal episode, thought to be vasovagal in the setting of poor p.o. intake for 2 days and standing to urinate. Head CT negative. Ortho VS positive 07/05
-s/p IVF. BPs improved. repeat ortho VS today
-add compression stockings
-was noted to be hypoxic after IVF. proBNP 1820. no complaints of SOB, not requiring supp O2. holding off on diuresis given orthostasis
-review of tele SR, no arrhythmias noted
-trop peaked at 0.37. no CP. felt to be nonischemic myocardial injury.
-continue OP plavix. hgb 11.5. was on IV heparin however stopped this AM due to epistaxis. UA also checked this AM and noted to have 4+ occult blood, ? IV heparin. no issues with hematuria as OP. d/w hospitalist, will defer further work up to
primary service
-echo with results as above, stable compared to prior
-PT/OT
-will arrange OP cardiac follow up
-d/w patient and at bedside
Progress Note - Pick Up Attendant
Subjective
Date of Service: July 06, 2025
no CP, SOB, dizziness overnight
Objective
Labs:
07/06/25 08:09
07/06/25 08:08
Labs
Hgb 11.5 g/dL (13.0-18.0) L 07/06/25 08:09
Hct 31.5 % (39.0-52.0) L 07/06/25 08:09
Plt Count 174 10^3/uL (130-400) D 07/06/25 08:09
APTT 53.0 Sec (23.4-35.0) H 07/06/25 08:09
Sodium 131 mmol/L (135-145) L 07/06/25 08:08
Potassium 3.9 mmol/L (3.5-5.1) 07/06/25 08:08
BUN 11 mg/dl (9-20) 07/06/25 08:08
Creatinine 0.8 mg/dL (0.7-1.3) 07/06/25 08:08
Glucose 108 mg/dl (70-99) H 07/06/25 08:08
Troponins
07/04/25 07/04/25 07/04/25
06:50 11:25 17:38
Troponin I 0.180 H* 0.375 H* D 0.298 H*
07/05/25 07/05/25
02:46 04:45
Troponin I 0.220 H* Cancelled
Vital Signs and I&O:
Vital Signs
Temp Pulse Resp BP Pulse Ox
98.0 F 86 15 158/72 95
07/06/25 03:44 07/06/25 07:37 07/06/25 07:37 07/06/25 07:37 07/06/25 03:44
Vital Signs
Temp Pulse Resp BP Pulse Ox
98.0 F 86 15 158/72 95
07/06/25 03:44 07/06/25 07:37 07/06/25 07:37 07/06/25 07:37 07/06/25 03:44
Intake & Output
07/04/25 07/05/25 07/06/25 07/07/25
07:59 07:59 07:59 07:59
Intake Total 740 / 740 500 / 500
Output Total 900 / 900 1615 / 1615 150 / 150
Balance -160 / -160 -1615 / -1615 350 / 350
Physical Exam
Physical Exam
GEN: No distress, awake, alert, oriented x3. tissue at bedside with bloody discharge
HEENT: supple, anicteric, mmm, eomi
LUNGS: CTA B/L, no wheezes/rales
CV: Reg, S1/S2, 1/6 syst LSB
ABD: soft, BS+, NT/ND
EXT: No cyanosis, clubbing, edema
NEURO: Gross non-focal
SKIN: Warm, pink, dry. No rash
[2025-07-06] MEDS: ZOFRAN 4 MG IV (13:00)
[2025-07-06] MEDS: LIPITOR 20 MG PO (18:19)
--- NOTE | 2025-07-06 19:12 | PTCARENOTE ---
~[id number]: Handoff report received from nighthift RN. Pt answers all orientation questions correctly however is resless and spontaneously gets up OOB or chair independenly. Reorienting required and re-education to use call kennedy for help needed.
Bed alarm and Chair alarm in place for safety. NSR 70s-80s on tele, SBP 120s-150s, RA satting 95%. Patient denies pain at this time. +2 pulses and no edema. Ax1 with walker. Bloodwork drawn and sent to lab. Heparin gtt dc'd per order. Na+ levels
resulted 131, per Dr. Cervantes ok to stop IVF as well. Urine odorous, concentrated yellow, and cloudy in appearance, UA sent to lab. After eating breakfast, patient became nauseous and dry heaving but never vomited, Dr. Cervantes made aware, PRN zofran
ordered however nausea subsided without medication. Lidya Valera PA-C in to speak with patient and . All needs met at this time, call kennedy within reach.
~[id number]: Orthostatics obtained. Around 1330, patient back to chair after bathroom from attempting to have a BM. About 10 mins after, patient went unresponsive for a few seconds, BP 74/45. When he came to, patient was nauseous and dry heaving, PRN
zofran given. Repeat BP 107/58 and back to bed with Ax2. Hospitalist made aware, no new orders at this time.
~[id number]: Patient resting in bed, urinal at bedside. Patient does not c/o painh. visiting. Patient has not violated bed alarm during this time period. VSS. All needs met at this time, call kennedy within reach. handoff report given to chavez
RN.
--- NOTE | 2025-07-06 23:23 | PTCARENOTE ---
Received pt @ change of shift. Awake and alert, sitting up in bed. Oriented to person and time-- confused on place. Continues to try to get OOB without assistance, looking for . Reoriented to hospital-- bed/chair alarms in place for safety.
Drips d/c'd earlier during day. Denies nausea or pain @ this time. Discussed plan of care-- pt verbalizes understanding. Call kennedy within reach.
[2025-07-07] VITALS (11 sets, daily range): BP systolic 84–151; BP diastolic 49–75; PULSE 63–78; BMI 18.9
[2025-07-07 05:04] LABS: Hematocrit 31.3 % (39.0-52.0); Hemoglobin 10.7 g/dL (13.0-18.0); Mean Corp Hgb Conc. 34.2 g/dL (33.0-37.0); Mean Corpuscular Volume 92.6 fL (80.0-94.0); Nucleated Red Blood Cells % 0 % (-); Platelet Count 200 10^3/uL (130-400); Red Cell Dist. Width 12.9 % (11.5-14.5)
[2025-07-07 05:36] LABS: Blood Urea Nitrogen 13 mg/dl (9-20); Calcium 8.6 mg/dl (8.4-10.2); Carbon Dioxide 24 mmol/L (22-30); Chloride 99 mmol/L (98-107); Estimated Creatinine Clearance 50 ml/min; Glucose 105 mg/dl (70-99); Magnesium 1.9 mg/dl (1.6-2.3); Potassium 4.1 mmol/L (3.5-5.1); Sodium 131 mmol/L (135-145); eGFR > 60.00
[2025-07-07] MEDS: SYNTHROID 75 MCG PO (05:49)
--- NOTE | 2025-07-07 07:17 | W.PN.HOSP.TC ---
Addendum entered and electronically signed by Esteban Cervantes DO 07/07/25 12:15:
Update: Initially planned for discharge however patient's blood pressure became soft this morning with SBP 84. Had borderline positive orthostatic vital signs. Chronically on prednisone due to pituitary mass. Will start midodrine 2.5 mg twice
daily and continue to monitor orthostats and baseline vital signs. Consider discharge tomorrow if hemodynamics improved. Consider empirically increasing steroid dose if blood pressure remains low
Original Note:
Today's Communication/Plan
-
Orthostatic vitals today
Discharge home with VN
Outpatient follow-up with endocrinology
Assessment / Plan
Assessment / Plan
#Witnessed syncopal event
#History of orthostasis
-DDx: Vasovagal/orthostatic >> arrhythmic/cardiac
-Orthostatic vital signs yesterday negative; will repeat today
-Echocardiogram unchanged, preserved EF, normal valvular function
-Event occurred during micturition which likely correlates to vasovagal
-monitor orthostatic vital signs before dc
-Continue to monitor on telemetry
#Elevated troponin
-Suspected nonischemic myocardial injury associated with syncopal episode
-No known history of obstructive CAD though does have risks with male gender and age
-Home regimen included Plavix for history of CVA, started on statin here with LDL 104
-Received heparin drip in the hospital, discontinued morning of 07/06, troponin downtrend
#Nausea
-Developed an episode of nausea without vomiting following breakfast this morning
-Zofran as needed
#Pituatiry mass
#SIADH
-Current regimen include chronic prednisone and cabergoline for pituitary mass
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
-Serum sodium currently stable around 131 on fluid restricted diet
-Continue home regimen and fluid restricted diet, trend BMP
#Hypothyroidism
-Possibly central etiology with known pituitary mass
-Home regimen includes levothyroxine 100 mcg Saturday through Saturday
-TSH was low on arrival though free T4 WNL
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
#History of CVA
-Home regimen included Plavix, started on statin here
-No obvious residual deficits noted
Diet: Regular, 48 oz FR
DVT ppx: Lovenox
CODE STATUS: DNR
Disposition: Home health
Anticipated Discharge: Within 24 hours
Subjective/Interval History
-
Date of Service: July 07, 2025
AFVSS. offers no new complaints today
Objective Data
-
Labs:
Laboratory Results
07/07/25
03:58
WBC 6.9
Hgb 10.7 L
Hct 31.3 L
Plt Count 200
Sodium 131 L
Potassium 4.1
Chloride 99
Carbon Dioxide 24
BUN 13
Creatinine 0.9
Glucose 105 H
Calcium 8.6
Vital Signs:
Vital Signs
Temp Pulse Resp BP Pulse Ox
98.0 F 87 14 126/75 94
07/07/25 04:07 07/07/25 05:45 07/07/25 04:07 07/07/25 03:52 07/07/25 04:07
I&O
07/06/25 07/07/25 07/08/25
06:59 06:59 06:59
Intake Total 500 / 500
Output Total 1615 / 1615 425 / 425
Balance -1615 / -1615 / 75
Review of Systems
-
History Source: Patient
All other systems: Reviewed and negative
Physical Exam
-
General: Well Developed, No Apparent Distress and Other (Thin and frail)
HEENT: Normocephalic, Atraumatic, Moist Mucous Membranes and Anicteric
Respiratory: Clear to Auscultation and Non Labored Respirations; Negative Accessory Resp Muscle Use
Cardiac: Regular Rhythm and S1/S2; Negative Murmur, Rub or Gallop
GI: Soft, Nontender, Nondistended and Normal Bowel Sounds
Musculoskeletal: No Clubbing, No Cyanosis and No Edema
Skin: Warm and Dry; Negative Rash
Neuro: AO x 3, Nonfocal/Grossly Intact and Central Nerve's Intact; Negative Tremors
Psych: Calm
Data Reviewed
-
Labs: Labs Reviewed by me, Discussed with Physician and Discussed with Patient
[2025-07-07] MEDS: PLAVIX 75 MG PO (08:42)
[2025-07-07] MEDS: DELTASONE 5 MG PO (08:42)
--- NOTE | 2025-07-07 09:45 | PTCARENOTE ---
Assumed care of pt from previous RN. AAOx3; however, pt is forgetful. Instructed to use call kennedy for help ambulating to bathroom but pt makes frequent attempts to ambulate on own. Bed/chair alarms in place. Fall risk education provided. NSR on
tele, HR 60s. VSS. Compression therapy applied to b/l LEs. Assessment documented. Pt resting in bed with call kennedy in reach. Plan for possible discharge today.
--- NOTE | 2025-07-07 12:23 | CM ---
Chart reviewed. Patient is independent of ADLS, lives with his , daughter and KRISTA in a 2 S[address], 5-6 LENY, 0 DME. Referral sent to [facility]. Plan is for the patient to return home with [facility]. CM to follow
[2025-07-07] MEDS: LIPITOR 20 MG PO (17:24)
[2025-07-07] MEDS: SENNA SYRUP 8.8 MG PO (20:19)
[2025-07-08 03:27] VITALS: BP 148/67
[2025-07-08 04:02] LABS: Hematocrit 32.1 % (39.0-52.0); Hemoglobin 11.0 g/dL (13.0-18.0); Mean Corp Hgb Conc. 34.3 g/dL (33.0-37.0); Mean Corpuscular Volume 95.3 fL (80.0-94.0); Platelet Count 199 10^3/uL (130-400); Red Cell Dist. Width 12.9 % (11.5-14.5)
[2025-07-08] MEDS: SYNTHROID 75 MCG PO (05:20)
[2025-07-08 07:18] VITALS: BP 111/58
[2025-07-08 07:19] VITALS: BP 111/58; BP 84/55; BP 85/41; PULSE 60; PULSE 72; PULSE 79
[2025-07-08 07:22] VITALS: BP 84/55
[2025-07-08 07:24] VITALS: BP 85/41
--- NOTE | 2025-07-08 07:31 | W.PN.HOSP.TC ---
Today's Communication/Plan
-
Discharge home with VN
Outpatient follow-up with endocrinology
Assessment / Plan
Assessment / Plan
#Witnessed syncopal event
#History of orthostasis
-DDx: Vasovagal/orthostatic >> arrhythmic/cardiac
-Orthostatic vital signs negative
-Echocardiogram unchanged, preserved EF, normal valvular function
-Event occurred during micturition which likely correlates to vasovagal
- Given that his blood pressure continuously was not on the softer side we started midodrine 2.5 mg twice daily. A prescription will be sent at the time of discharge
- Patient was for discharge yesterday however was worried as she was only cloud engineer at home and she felt unsafe with low blood pressure. Today they agree.
#Elevated troponin
-Suspected nonischemic myocardial injury associated with syncopal episode
-No known history of obstructive CAD though does have risks with male gender and age
-Home regimen included Plavix for history of CVA, started on statin here with LDL 104
-Received heparin drip in the hospital, discontinued morning of 07/06, troponin downtrend
#Nausea
-Developed an episode of nausea without vomiting following breakfast this morning
-Zofran as needed
#Pituatiry mass
#SIADH
-Current regimen include chronic prednisone and cabergoline for pituitary mass
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
-Serum sodium currently stable around 131 on fluid restricted diet
-Continue home regimen and fluid restricted diet, trend BMP
#Hypothyroidism
-Possibly central etiology with known pituitary mass
-Home regimen includes levothyroxine 100 mcg Saturday through Saturday
-TSH was low on arrival though free T4 WNL
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
#History of CVA
-Home regimen included Plavix, started on statin here
-No obvious residual deficits noted
# Underweight
- Encourage good nutrition
Diet: Regular, 48 oz FR
DVT ppx: Lovenox
CODE STATUS: DNR
Disposition: Home health
Anticipated Discharge: Today
Subjective/Interval History
-
Date of Service: July 08, 2025
AVSS. Offers no new complaints. States that he wants to go home.
Objective Data
-
Labs:
Laboratory Results
07/08/25
03:39
WBC 6.7
Hgb 11.0 L
Hct 32.1 L
Plt Count 199
Vital Signs:
Vital Signs
Temp Pulse Resp BP Pulse Ox
97.9 F 68 20 148/67 93
07/08/25 07:19 07/08/25 03:30 07/08/25 07:19 07/08/25 03:27 07/08/25 07:19
I&O
07/07/25 07/08/25 07/09/25
06:59 06:59 06:59
Intake Total 500 / 500
Output Total 425 / 425
Balance 75 / 75
Review of Systems
-
History Source: Patient
All other systems: Reviewed and negative
Physical Exam
-
General: Well Developed, No Apparent Distress and Other (Thin and frail)
HEENT: Normocephalic, Atraumatic, Moist Mucous Membranes and Anicteric
Respiratory: Clear to Auscultation and Non Labored Respirations; Negative Accessory Resp Muscle Use
Cardiac: Regular Rhythm and S1/S2; Negative Murmur, Rub or Gallop
GI: Soft, Nontender, Nondistended and Normal Bowel Sounds
Musculoskeletal: No Clubbing, No Cyanosis and No Edema
Skin: Warm and Dry; Negative Rash
Neuro: AO x 3, Nonfocal/Grossly Intact and Central Nerve's Intact; Negative Tremors
Psych: Calm
Data Reviewed
-
Old Records: Reviewed
[2025-07-08] MEDS: DELTASONE 5 MG PO (09:10)
[2025-07-08] MEDS: SENNA SYRUP 8.8 MG PO (09:11)
[2025-07-08] MEDS: PLAVIX 75 MG PO (09:11)
[2025-07-08 11:37] VITALS: BP 128/66
--- NOTE | 2025-07-08 11:48 | PTCARENOTE ---
Assumed care at 0700. Patient alert and oriented x3. Forgetful at times. Patient with frequent urination. Frequently violating bed alarm. Patient with positive orthostatic vital signs. Patient denies any dizziness when changing positions. Patient
re-educated on use of call kennedy. Call kennedy and personal belongings within reach.
--- NOTE | 2025-07-08 14:03 | PTCARENOTE ---
Reviewed discharge instructions with Pt and his , she expressed understanding, Pt forgetful but pleasant and cooperative.
--- NOTE | 2025-07-08 18:30 | W.DCSUMMARY ---
Documented by User: Nelson Alvarado MD, Resident 07/09/25 13:06
Discharge Summary
Discharge Data
Date of Admission: 07/04/25
Date of Discharge: 07/08/25
-
Pending Results: No
Hospital Course
Discharging Physician : Nelson Alvarado MD ; Esteban Cervantes DO
Disposition : Home
Primary care physician : Akash Dinero
Principal Discharge diagnosis : Syncope (vasovagal +/- orthostatic)
Nonischemic myocardial injury
Chronic hyponatremia
Positive UA
Chronic Discharge diagnosis : Pituitary mass , hypothyroidism, history of CVA, underwent
Hospital Course : 85 male history of CVA, pituitary mass, hypothyroidism, hyponatremia/SIADH presented with a witnessed syncopal episode. was helping him to the bathroom with assistance of his walker. Before even able to use the toilet/sit
down on the toilet his legs gave out and his arm/left arm went flaccid his face glazed over. She was able to turn him around and his walker and set him on the toilet. She believes it was for a minute or so and he was not confused but he did
urinate himself. But does state if felt like it was 10 minutes. Did not have any complaints of shortness of breath chest pain palpitations. She does admit that he was sleeping in bed for 3 days and would only wake up to eat food and take his
medications and use the bathroom otherwise he was tired. On morning which was the start of the 3-days in bed he had thrown up his breakfast and all of his pills.
She tells me that he has been compliant with prednisone 5 mg p.o. daily and has been taking all of his other medications and has not missed a dose.
In the ED EKG was completed that showed sinus rhythm with a right bundle branch block similar to previous. Elevated troponin of 0.18. He remain hemodynamically stable.
echo was obtained with results as below. Cardiology was consulted. Labs showed some hyponatremia and he did receive periodic lab work. Initial D-dimer was 0.06 age-adjusted.
On the morning of 06/2725 he was hypoxic for short period of time requiring supplemental oxygen. He did not experience any chest pain or shortness of breath. Flu and COVID were obtained which was negative checks. X-ray was also obtained with
results as below. PT and OT was also consulted. Initially he was also on heparin drip which was later discontinued. He was continuously monitored on telemetry. We also checked his orthostatic vitals.
He was started on midodrine 2.5 mg twice daily with continuous resetting monitoring.
He was discharged in stable condition on 07/08/2025.
At that time of discharge he was provided with the instructions as follows
Start atorvastatin 20 mg nightly
Use senna 1 capsule twice daily
Take MiraLAX as needed once daily for constipation
Take midodrine 2.5 mg 1 tablet by mouth twice daily to help maintain a good blood pressure. If you find that your upper number blood pressure is greater than 120 please skip that dose as it may increase the blood pressure further.
Avoid straining for urination or bowel movements.
You may wear compression stockings during the day to help maintain good blood flow in the body.
Important imaging findings : CT Head W/o Iv Contrast
No acute intracranial abnormality noted.
There are extensive white matter hypodensities which are overall similar to prior and may be sequelae of severe chronic small vessel ischemic disease. If there is concern for acute infarction an MRI may be considered.
CR Chest Portable - 1 View
Small left basilar opacity, likely scarring.
Several calcified right hilar and mediastinal lymph nodes suggestive of prior granulomatous disease.
Procedure findings :
TRANSTHORACIC ECHOCARDIOGRAM REPORT
SUMMARY
1. Ejection fraction is 65-70% by visual assessment.
2. Compared to a prior transthoracic echocardiogram study from January 2023 no significant changes are seen.
3. Thickened calcified aortic valve with decreased leaflet excursion. Mild aortic stenosis. Peak/mean gradients are 18/10 mmHg. The valve area by continuity equation is 1.9 cm sq, using a left ventricular outflow tract of 2.0 cm. Trace aortic
insufficiency.
4. Mild concentric left ventricular hypertrophy.
Discharge Plan
-
Patient Disposition: Home with Home Care
Discharge Diagnosis/Procedures: Syncope (vasovagal +/- orthostatic)
Nonischemic myocardial injury
Chronic hyponatremia
Positive UA
Condition: Fair
Diet: Low Cholesterol and Restrict fluids to 48 oz
Activity: As tolerated
Driving Restrictions: Not until seen by your Dr
Bathing Restrictions: None
Blood Work: Follow-up with family doctor for BMP and CBC on routine basis
Repeat TSH and free T4 in 4 weeks
Check LFTs in 1 to 3 months while on statin therapy
Others Tests: Speak to your production operations engineer about whether a stress test is needed
Other Services: VN and PT
Instructions: How to put on and take off compression stockings
Referrals:
[facility] [Outside]
Akash Dinero MD [Family Provider, Family Practice] - in less than 1 week
Joyce Rodriguez CRNP [Specified Professional Personl, Cardiology] - 07/27/25 2:20 pm
Referral Note: You have a cardiology follow-up appointment at the [place] office. Please call with questions
Additional Discharge Medication Instructions: Start atorvastatin 20 mg nightly
Use senna 1 capsule twice daily
Take MiraLAX as needed once daily for constipation
Take midodrine 2.5 mg 1 tablet by mouth twice daily to help maintain a good blood pressure. If you find that your upper number blood pressure is greater than 120 please skip that dose as it may increase the blood pressure further.
Avoid straining for urination or bowel movements.
You may wear compression stockings during the day to help maintain good blood flow in the body.
Prescriptions:
New
atorvastatin 20 mg Tablet
20 mg PO QPM Qty: 30 0RF
senna 8.6 mg capsule
8.6 mg PO BID Qty: 60 0RF
polyethylene glycol 3350 [Miralax] 17 gram/dose powder
4 g PO DAILY PRN (Reason: Constipation) Qty: 119 0RF
midodrine 2.5 mg Tablet
2.5 mg PO DAILY@0800,1800 Qty: 60 0RF
Rx Instructions:
HOLD if systolic blood pressure is >120
Continued
levothyroxine [Synthroid] 100 mcg Tablet
100 mcg PO MOTUWETHFRSA
clopidogrel 75 mg tablet
75 mg PO DAILY Qty: 90 0RF
prednisone 5 mg Tablet
5 mg PO DAILY Qty: 90 0RF
cabergoline 0.5 mg Tablet
0.25 mg PO MOFR Qty: 30 0RF
Discharge Orders:
Discharge Patient (As Directed); Ordered 07/08/25
Ordered By: Nelson Alvarado
Care Plan Goals
Care Plan Goals:
Problem: Readiness for enhanced knowledge related to diagnosis and treatment plan
Goal: Understand your diagnosis and treatment plan needs, including medications if applicable.
Instructions: Know your diagnosis, underlying causes and treatment plan options, including medications if applicable. Consult with your health care team to learn about your diagnosis and treatment plan, including medications if applicable.
Discharge Date and Time
Discharge Date/Time: 07/08/25 14:01
Print Language: YI

Documented by User: Esteban Cervantes DO 07/09/25 15:24
Discharge Summary
Discharge Data
Date of Admission: 07/04/25
Date of Discharge: 07/08/25
Total time spent discharging patient (in min): 34
Discharge Plan
-
Patient Disposition: Home with Home Care
Discharge Diagnosis/Procedures: Syncope (vasovagal +/- orthostatic)
Nonischemic myocardial injury
Chronic hyponatremia
Positive UA
Condition: Fair
Diet: Low Cholesterol and Restrict fluids to 48 oz
Activity: As tolerated
Driving Restrictions: Not until seen by your Dr
Bathing Restrictions: None
Blood Work: Follow-up with family doctor for BMP and CBC on routine basis
Repeat TSH and free T4 in 4 weeks
Check LFTs in 1 to 3 months while on statin therapy
Others Tests: Speak to your production operations engineer about whether a stress test is needed
Other Services: VN and PT
Instructions: How to put on and take off compression stockings
Referrals:
[facility] [Outside]
Akash Dinero MD [Family Provider, Family Practice] - in less than 1 week
Joyce Rodriguez CRNP [Specified Professional Personl, Cardiology] - 07/27/25 2:20 pm
Referral Note: You have a cardiology follow-up appointment at the [place] office. Please call with questions
Additional Discharge Medication Instructions: Start atorvastatin 20 mg nightly
Use senna 1 capsule twice daily
Take MiraLAX as needed once daily for constipation
Take midodrine 2.5 mg 1 tablet by mouth twice daily to help maintain a good blood pressure. If you find that your upper number blood pressure is greater than 120 please skip that dose as it may increase the blood pressure further.
Avoid straining for urination or bowel movements.
You may wear compression stockings during the day to help maintain good blood flow in the body.
Prescriptions:
New
atorvastatin 20 mg Tablet
20 mg PO QPM Qty: 30 0RF
senna 8.6 mg capsule
8.6 mg PO BID Qty: 60 0RF
polyethylene glycol 3350 [Miralax] 17 gram/dose powder
4 g PO DAILY PRN (Reason: Constipation) Qty: 119 0RF
midodrine 2.5 mg Tablet
2.5 mg PO DAILY@0800,1800 Qty: 60 0RF
Rx Instructions:
HOLD if systolic blood pressure is >120
Continued
levothyroxine [Synthroid] 100 mcg Tablet
100 mcg PO MOTUWETHFRSA
clopidogrel 75 mg tablet
75 mg PO DAILY Qty: 90 0RF
prednisone 5 mg Tablet
5 mg PO DAILY Qty: 90 0RF
cabergoline 0.5 mg Tablet
0.25 mg PO MOFR Qty: 30 0RF
Discharge Orders:
Discharge Patient (As Directed); Ordered 07/08/25
Ordered By: Nelson Alvarado
Care Plan Goals
Care Plan Goals:
Problem: Readiness for enhanced knowledge related to diagnosis and treatment plan
Goal: Understand your diagnosis and treatment plan needs, including medications if applicable.
Instructions: Know your diagnosis, underlying causes and treatment plan options, including medications if applicable. Consult with your health care team to learn about your diagnosis and treatment plan, including medications if applicable.
Discharge Date and Time
Discharge Date/Time: 07/08/25 14:01
Print Language: YI
== END 2025-07-08 14:01 | disposition home health service (06) | DRG 315 ==
LOC: IVU 11:26
PROVIDERS: Nurse Practitioner Family; ADMITTING PHYSICIAN Hospitalist; ATTENDING PHYSICIAN Internal Medicine; CONSULT PHYSICIAN Internal Medicine Cardiovascular Disease; EMERGENCY PHYSICIAN Emergency Medicine; FAMILY PHYSICIAN Family Medicine
DX: I5A Non-ischemic myocardial injury (non-traumatic) (principal); E22.2 Syndrome of inappropriate secretion of antidiuretic hormone; E87.1 Hypo-osmolality and hyponatremia; Z68.1 Body mass index [BMI] 19.9 or less, adult; D35.2 Benign neoplasm of pituitary gland; R09.02 Hypoxemia; R06.89 Other abnormalities of breathing; Z11.52 Encounter for screening for COVID-19; E03.9 Hypothyroidism, unspecified; R63.6 Underweight; Z79.02 Long term (current) use of antithrombotics/antiplatelets
CPT/HCPCS: 70450; 71045; 80048; 80053; 80061; 81003; 81015; 83036; 83735; 83880; 84439; 84443; 84484; 85025; 85027; 85379; 85730; 87086; 87147; 87186; 87502; 87811; 92526; 92610; 93005; 93306; 96360; 97116; 97163; 97167; 97530; 99285